=== PATIENT | male | born 1950 | race Caucasian/White ===

== ENCOUNTER → 2024-05-22 11:04 | Outpatient (REF) | payer OTHER, SELFPAY | LOC: RCS 11:04 | PROVIDERS: ATTENDING PHYSICIAN Nuclear Medicine Nuclear Cardiology; FAMILY PHYSICIAN Family Medicine | DX: I34.0 Nonrheumatic mitral (valve) insufficiency (principal); Z95.3 Presence of xenogenic heart valve | CPT/HCPCS: 93306 ==

== ENCOUNTER 2024-05-26 18:24 | Inpatient (IN) | payer OTHER, SELFPAY ==
[2024-05-26] VITALS (14 sets, daily range): BP systolic 152–221; BP diastolic 69–188; BMI 21.4
[2024-05-26 12:52] LABS: % Basophils 0.4 % (0-2); % Eosinophils 0.8 % (0-6); % Immature Granulocytes 0.4 % (0-0.5); % Lymphocytes 7.3 % (20.5-51.1); % Monocytes 4.1 % (1.7-9.3); Absolute Basophils 0.1 10^3/uL (0-0.2); Absolute Eosinophils 0.1 10^3/uL (0-0.7); Absolute Immature Granulocytes 0.1 10^3/uL (0-0.05); Absolute Lymphocytes 1.1 10^3/uL (1.2-3.4); Absolute Monocytes 0.6 10^3/uL (0.1-0.6); Absolute Neutrophils 12.7 10^3/uL (1.4-6.5); Hemoglobin 13.6 g/dL (13.0-18.0); Mean Corp Hgb Conc. 32.4 g/dL (33.0-37.0); Mean Corpuscular Hgb 27.7 pg (27.0-31.0); Mean Corpuscular Volume 85.5 fL (80.0-94.0); Mean Platelet Volume 9.2 fL (7.4-10.4); Nucleated Red Blood Cells % 0 % (-); Platelet Count 197 10^3/uL (130-400); Red Blood Cell Count 4.91 10^6/uL (4.70-6.10); White Blood Cell Count 14.6 10^3/uL (4.8-10.8)
[2024-05-26 13:15] LABS: ALT (SGPT) 18 U/L (0-50); AST (SGOT) 32 U/L (17-59); Albumin 4.5 g/dl (3.5-5.0); Alkaline Phosphatase 163 U/L (38-126); Blood Urea Nitrogen 27 mg/dl (9-20); Calcium 9.6 mg/dl (8.4-10.2); Carbon Dioxide 27 mmol/L (22-30); Chloride 102 mmol/L (98-107); Glucose 140 mg/dl (70-99); Potassium 3.8 mmol/L (3.5-5.1); Sodium 140 mmol/L (135-145); Total Bilirubin 1.9 mg/dl (0.2-1.3); Total Protein 8.9 g/dl (6.3-8.2); Troponin I < 0.012 ng/ml; eGFR 44.38
[2024-05-26 13:38] LABS: Urine Albumin 1+ (Neg - Trace); Urine Bilirubin Negative (Negative); Urine Character Clear (Clear); Urine Color Yellow; Urine Glucose 3+ (Negative); Urine Ketone Negative (Negative); Urine Leukocyte Negative (Negative); Urine Nitrite Negative (Negative); Urine Occult Blood 2+ (Negative); Urine Urobilinogen Negative (Neg - 1+)
[2024-05-26 14:16] LABS: Urine Squamous Cell 0-2 /LPF (Few)
[2024-05-26 14:18] LABS: Urine Red Blood Cell 26-30 /HPF (0-2)
[2024-05-26] MEDS: ZOFRAN 4 MG IV (14:18)
[2024-05-26] MEDS: DILAUDID 1 MG IV (14:19)
--- NOTE | 2024-05-26 17:25 | ED.GENMED ---
History of Present Illness
General
Chief Complaint: Back Pain
Source: patient, records and significant other
Exam Limitations: none
Time Seen by Provider: 05/26/24 13:19
Nursing documentation reviewed up to this point in time: agreed with
History of Present Illness
History of Present Illness:
Patient is a 74-year-old male who presents to the emergency department complaining of diffuse pain across the abdomen and back with feeling bloated since 3 AM. Patient denies fever but admits to chills. Patient denies chest pain but has mild
shortness of breath. Patient denies coughing, nasal congestion, sore throat. Patient denies any symptoms. Patient is nauseous with dry heaves. Patient had loose stools without melena, hematochezia. Patient has known gallbladder disease but
because he had [facility] for a large ventral hernia decision was to wait and see.
Past History
Past History
ED Past Medical History: Arrthythmia (Atrial fib), CHF, HTN, Hypercholesterolemia and Valvular disease
ED Past Surgical History: Cardiac and Other (Ventral hernia repair X3)
Social History
Tobacco: Non-smoker
Alcohol: None
Personal:
Living: with family
Review of Systems
Review of Systems
All Other Systems: ROS reviewed and negative except as documented in HPI and ROS
Constitutional: Reports fatigue and chills; Denies fever
EENT: Reports no symptoms
Respiratory: Reports trouble breathing; Denies cough
Cardiac: Reports no symptoms
ABD/GI: Reports abdominal pain, nausea, vomiting, anorexia and other (Soft stools that are not diarrhea); Denies bloody stools or black stools
: Reports no symptoms
Musculoskeletal: Reports back pain
Skin: Reports no symptoms
Neurological: Reports no symptoms
Hematologic/Lymphatic: Reports no symptoms
Phy Exam
Physical Exam
Physical Exam:
Physical Exam
General: moderate distress, alert and appropriate, well nourished, dry mucous membranes
HENT: Normocephalic, supple with no lymphadenopathy, no thyromegaly
Eyes: Clear sclera, conjuctiva without injection
Heart: Regular rhythm and rate. No S3, S4. Grade 2/6 holosystolic murmur. No NVD
Lungs: No respiratory distress, no stridor, lung sounds clear and equal bilaterally, chest wall symmetrical and nontender
Abdomen: Soft, moderate midepigastric and right upper quadrant tenderness with guarding but no rebound, hepatic edge is felt 1 to 2 cm below the costal margin, no CVA tenderness, BS good
Neuro: Alert and oriented x 3, CN II - XII intact, no motor focality, no cerebellar dysfunction
Skin: no rash
Psychiatric: well kept. interactive and cooperative
Extremities: No edema, cyanosis, tenderness
Course
Orders/Labs/Results
Orders:
Orders
05/26/24 12:21
EKG [Electrocardiogram (*1)] Urgent
Reason for Study: Chest Pain
EKG- Treatment ONCE
05/26/24 12:45
CMP [Comprehensive Metabolic Panel] Urgent
Complete Blood Count/With Diff Urgent
Troponin I Urgent
05/26/24 13:22
Urinalysis Reflex To Culture Urgent
Date Specimen was Collected: 05/26/24
Time Specimen was Collected: 13:19
Urine Microscopic Reflex Cult Urgent
05/26/24 14:04
HYDROmorphone [Dilaudid] 1 mg IV NOW STA
Ondansetron Injectable [Zofran] 4 mg IV NOW STA
US Abdomen Complete/Upper Urgent
Comment:
Reason For Exam: enlarged liver tender
05/26/24 17:25
Diphenhydramine [Benadryl] 12.5 mg IV NOW STA
Morphine Sulfate 2 mg IV NOW STA
Prochlorperazine [Compazine] 5 mg IV NOW STA
05/26/24 17:29
0.9% Sodium Chloride 1000 ml [Nss] 1,000 ml IV BOLUS
Abnormal Lab Results
05/26/24 05/26/24
12:45 13:22
WBC 14.6 H 10^3/uL
(4.8-10.8)
MCHC 32.4 L g/dL
(33.0-37.0)
RDW 18.0 H %
(11.5-14.5)
Abs Immat Gran (auto) 0.1 H 10^3/uL
(0-0.05)
Absolute Neuts (auto) 12.7 H 10^3/uL
(1.4-6.5)
Absolute Lymphs (auto) 1.1 L 10^3/uL
(1.2-3.4)
Neutrophils % 87.0 H %
(42.2-75.2)
Lymphocytes % 7.3 L %
(20.5-51.1)
BUN 27 H mg/dl
(9-20)
Creatinine 1.6 H mg/dL
(0.7-1.3)
Glucose 140 H mg/dl
(70-99)
Total Bilirubin 1.9 H mg/dl
(0.2-1.3)
Alkaline Phosphatase 163 H U/L
(38-126)
Total Protein 8.9 H g/dl
(6.3-8.2)
Ur Occult Blood Reflex 2+ A
(Negative)
Urine RBC 26-30 A /HPF
(0-2)
Urine Glucose 3+ A
(Negative)
Urine Albumin (Reflex) 1+ A
(Neg - Trace)
05/26/24 12:45
05/26/24 12:45
Vital Signs
Initial and Last Documented VS:
Initial Vital Signs
Temp Pulse Resp BP Pulse Ox
98.2 F 73 18 177/94 100
05/26/24 12:22 05/26/24 12:22 05/26/24 12:22 05/26/24 12:22 05/26/24 12:22
Last Documented Vital Signs
Temp Pulse Resp BP Pulse Ox
98.2 F 70 24 152/74 96
05/26/24 12:22 05/26/24 17:30 05/26/24 17:30 05/26/24 17:30 05/26/24 17:30
*Radiology
Radiology exam reviewed: radiology read reviewed (Prominent gallbladder with stones at least 1 in the vicinity of the neck with mild thickening of the gallbladder wall. Patient had positive Durán's sign and could represent acute cholecystitis)
*Pulse Oximetry
Patient hypoxic: no
*EKG
Interpreted by ED Provider?: Yes
EKG Intrepretation Date: 05/26/24
EKG Intrepretation Time: 17:31
Interpretation: normal
Comparison EKG: changes noted
Heart Rate: 80
Rhythm: sinus
[place]: normal axis
Interval: normal FL interval and long QT
QRS Pattern: normal QRS
Ischemia: no ischemia
*Data Analytics Developer Interpretation
Rate: normal
Interpretation: normal
Heart Rate: 80
Rhythm: sinus
*Critical Care Note
Total Time (30-74mins, 75-104mins- exclusive of procedures): Not Applicable
Update Note
Update Note:
Will admit the patient.
ED Attending Note
-
Portions of this chart may have been created with voice recognition software.� Occasional wrong word or��sound alike� substitutions may have occurred due to the inherent limitations of voice recognition software.
Discharge Plan
Departure
Patient Disposition: Admit
Date of Disposition: 05/26/24
Time of Disposition: 17:37
Admit to: Med/Surg
Admit to doctor: Hospitalist
Presentation/result/management discussed w/ accepting MD/DO: General surgery
Patient with high blood pressure during this ER visit?: Yes
Condition: Fair
Covid-19: Not Applicable
Discharge Problem:
Acute cholecystitis due to biliary calculus
Prescriptions:
No Action
allopurinol 100 MG tablet
200 mg PO QPM
finasteride 5 MG tablet
5 mg PO HS
atorvastatin 40 MG tablet
40 mg PO HS Qty: 1 0RF
pantoprazole 40 MG tablet,delayed release (DR/EC)
40 mg PO DAILY
Farxiga 10 MG tablet
10 mg PO DAILY
magnesium oxide 400 MG tablet
400 mg PO DAILY
lorazepam 0.5 MG tablet
0.5 mg PO Q6H PRN (Reason: anxiety/sleep)
Patient Comments:
10/12/2023: last filled 01/03/23, 60 tabs for 30 days from [facility]
metoprolol succinate 50 MG tablet extended release 24 hr
50 mg PO QPM Qty: 30 0RF
Eliquis 2.5 MG tablet
2.5 mg PO BID Qty: 60 0RF
sildenafil 100 mg tablet
100 mg PO DAILY PRN (Reason: ed)
Hold Instructions: given your heart issues, would discuss the safety of this medication with your junior accountant bookkeeper--hold for now
Align 4 mg Capsule
4 mg PO DAILY
potassium chloride 10 mEq tablet extended release
10 meq PO DAILY
fluoxetine 20 mg capsule
20 mg PO DAILY
amiodarone [Pacerone] 200 mg tablet
200 mg PO QPM
levofloxacin 500 mg tablet
500 mg PO DAILY 5 Days Qty: 7 0RF
metronidazole 500 mg tablet
500 mg PO Q8H 7 Days Qty: 21 0RF
furosemide [Lasix] 20 mg tablet
20 mg PO DAILY Qty: 30 0RF
Referrals:
Skip Patel MD [Family Provider] -
Interventions
Interventions:
*Risk Screen - Suicide Last Done: 05/26/24 13:20
*General Assessment Last Done: 05/26/24 13:20
*Neglect/Abuse Screening Last Done: 05/26/24 13:20
ED- Fall Risk Assessment Last Done: 05/26/24 13:20
*ED COVID-19 Vaccine History Last Done: 05/26/24 13:20
ED-Musculoskeletal Assessment Last Done: 05/26/24 13:19
Discharge Date and Time
Print Language: KINYARWANDA
[2024-05-26] MEDS: MORPHINE SULFATE 2 MG IV (17:28)
[2024-05-26] MEDS: BENADRYL 12.5 MG IV (17:29)
[2024-05-26] MEDS: COMPAZINE 5 MG IV (17:29)
[2024-05-26] MEDS: NSS 1000 IV (17:33)
--- NOTE | 2024-05-26 17:37 | HPS.HSE ---
Addendum entered and electronically signed by Luke Boogie MD 05/26/24 21:05:
I saw and examined the patient.
The LENS HARDENER or PA's note was reviewed and I agree with the note.
Comment:
74 male A-fib Eliquis history HFrEF recovered EF hypertension hyperlipidemia CKD 3 mitral valve bioprosthetic ventral hernia repair presents with new onset abdomen pain diffuse that woke him up from sleep last night associated with nausea dry heaves
and chills. Abdomen ultrasound consistent with acute cholecystitis. Afebrile mild leukocytosis noted in labs. Patient developed hypoxic insufficiency/failure requiring 2 L following pain medications and a liter bolus given in ED. Chest x-ray
suggestive of heart failure and possible right basilar pneumonia.
Physical Exam
General: No pallor, cyanosis, or jaundice.
HEENT: Throat clear. PERRLA Normocephalic atraumatic hard of hearing
NECK: Supple. No JVD Carotid Bruits
RESPIRATORY: Right basilar crackles
CVS: S1, S2 normal. RRR. No murmur, rub or gallop.
ABDOMEN: Soft, tender distended. BS+/normal.
EXTREMITIES: No peripheral cyanosis or edema.
HOUSEHOLD COOK: AOx3.
#Acute cholecystitis
#Possible heart failure exacerbation acute on chronic HFpEF
#History HFrEF recovered EF
#Possible pneumonia
#Sepsis (leukocytosis tachypnea)
#Mild QT prolongation
Telemetry admit
Elevated BNP noted though appears to improve from prior values
N.p.o. except for meds sips of clears
Hold further IV fluid or Lasix at this time
Surgery cardio infectious disease eval
Continue empiric antibiotics Zosyn
Hydralazine as needed hypertension
Pain control
Antiemetics as needed
Daily weights I/O
Check lactic acid
Hold Eliquis for possible procedure
Original Note:
Family Physician
-
Family Physician: Skip Patel
Chief Complaint
-
abdominal pain associated with bloating, n
History of Present Illness
74-year-old male with PMH for A-fib, congestive heart failure, hypertension, hyperlipidemia, valvular disease presented to us with complaining of diffuse pain across the abdomen and back with feeling bloated since 3 AM. Stated dry heaves. Denied
vomiting, diarrhea or constipation. patient denies fever but admits to chills. Patient denies chest pain short of breath. patient denies coughing, nasal congestion, sore throat. Patient denied dysuria hematuria.
Ultrasound with acute cholecystitis. Admitting for further management
Medical History
Past Medical History
Past Medical History: Reports Other
Additional Past Medical History:
Abdominal hernia without obstruction or gangrene
Palpitation
Gout
Pulmonary hypertension
Depression
Anemia
Hyperlipidemia
BPH
Erectile dysfunction
Heart failure
Mitral valve insufficiency
Obstructive sleep apnea
Hypertension
Atrial fibrillation
Chronic kidney disease
Calculus of gallbladder
Past Surgical History: Reports Other
Additional Past Surgical History:
Paraesophageal hernia repair
Ventral hernia repair
Inguinal hernia repair x 2
Status post ex lap, lysis of adhesion removal old hernia mesh
Repair recurrent incisional hernia with mesh
Cardioversion
Social History
Tobacco: Non-smoker
Alcohol: None
Drug: None
Personal:
Living: With Family
Employment: Retired
Family History
Family History: Not pertinent
Allergies / Home Medications
Allergies reflects when Allergies were last updated in [facility].
Home Medications with original date entered in [facility]
Allergy/Medication List:
Allergies
Allergy/AdvReac Type Severity Reaction Status Date / Time
No Known Allergies Allergy Verified 05/26/24 13:21
Home Medications
allopurinol 100 mg tablet 200 mg PO QPM Gout 04/19/19
finasteride 5 mg tablet 5 mg PO HS Urinary issue 04/19/19
atorvastatin 40 mg tablet 40 mg PO HS High cholesterol #1 tab 10/12/20
dapagliflozin propanediol 10 mg tablet (Farxiga) 10 mg PO DAILY Diabetes/Cardiovascular health 05/19/22
lorazepam 0.5 mg tablet 0.5 mg PO Q6HPRN PRN anxiety/sleep 05/19/22
magnesium oxide 400 mg PO DAILY Electrolyte Repletion 05/19/22
pantoprazole 40 mg tablet,delayed release 40 mg PO DAILY Gastrointestinal issue 05/19/22
apixaban 2.5 mg tablet (Eliquis) 2.5 mg PO BID #60 tabs 05/24/22
Bifidobacterium infantis 4 mg capsule (Align) 4 mg PO DAILY Gastrointestinal issue 12/30/22
sildenafil 100 mg tablet 100 mg PO DAILYPRN PRN ed 12/30/22
fluoxetine 20 mg capsule 20 mg PO DAILY 10/12/23
potassium chloride 10 mEq tablet,extended release 10 meq PO DAILY@1130 10/12/23
ferrous sulfate 325 mg (65 mg iron) tablet 325 mg PO DAILY@1320 05/26/24
furosemide 20 mg tablet (Lasix) 20 mg PO DAILY@1500 05/26/24
metoprolol succinate 50 mg tablet,extended release 24 hr 50 mg PO HS 05/26/24
Review of Systems
-
Constitutional: Reports No Symptoms
EENT: Reports No Symptoms
Respiratory: Reports No Symptoms
Cardiac: Reports No Symptoms
Abdomen/GI: Reports Abdominal Pain and Nausea
: Reports No Symptoms
Musculoskeletal: Reports No Symptoms
Skin: Reports No Symptoms
Neurological: Reports No Symptoms
Endocrine: Reports No Symptoms
Hematologic/Lymphatic: Reports No Symptoms
Psych: Reports No Symptoms
Physical Exam
Vital Signs
Vital Signs
Temp Pulse Resp BP Pulse Ox
98.2 F 70 24 152/74 96
05/26/24 12:22 05/26/24 17:30 05/26/24 17:30 05/26/24 17:30 05/26/24 17:30
Physical Exam
General: Well Developed, Well Nourished and No Apparent Distress
HEENT: NormoCephalic, Moist mucous membranes and Atraumatic
Respiratory: Clear
Cardiac: S1/S2 and Regular Rhythm; No Murmur or Rub
GI: Soft, Non Tender, Normal Bowel Sounds and Distended; No Organomegaly
Rectal: Deferred by Provider
Musculoskeletal: No Clubbing, No Cyanosis and No Edema
Skin: No Rash
Neuro: AO x 3 and Nonfocal/grossly intact
Psych: Calm
Laboratory Results
-
05/26/24 12:45
05/26/24 12:45
Laboratory Results
Total Bilirubin 1.9 mg/dl (0.2-1.3) H 05/26/24 12:45
AST 32 U/L (17-59) 05/26/24 12:45
ALT 18 U/L (0-50) 05/26/24 12:45
Alkaline Phosphatase 163 U/L (38-126) H 05/26/24 12:45
Troponin I < 0.012 ng/ml 05/26/24 12:45
Data Reviewed
-
Diagnostic Radiology: Report Reviewed by me
Ultrasound: Report Reviewed by me
Lab Data: Labs Reviewed by me
Impression/Plan
-
#abdominal pain associated with n/bloating likely acute cholecystitis
-wbc 14.6,bili 1.9
-abdominal US with Prominent size gallbladder with stones including at least one stone in the vicinity of the gallbladder neck. Gallbladder wall mildly thickened at 0.4 cm. Positive sonographic Durán's sign. No findings to suggest biliary tract
dilatation. OVERALL FINDINGS COULD REPRESENT ACUTE CHOLECYSTITIS.Liver within the limits of normal in size. 0.8 cm somewhat echogenic right lobe hepatic lesion. Most likely differential diagnostic possibility would be a benign hemangioma.Pancreas,
abdominal aorta and IVC significantly obscured, most likely by overlying bowel gas.Bilateral renal cysts including largest right renal cyst measuring 5.8 cm mildly complex.
-NPO xpt meds and sips of clears
-iv Zosyn continued
-normal saline 50cc/hr
-Surgery consulted
#CKD stage 3b
-cr 1.6
-ctm
#Chronic HFrEF
-not in acute exacerbation
#Hx Mitral Valve Endocarditis s/p MVR
-Echo May 2024: Normal left ventricular size and systolic function. LV ejection fraction is 45-
-hold Lasix
-continue Farxiga
-Monitor Is&Os and Daily Weights
-obtain BNP, chest x ray
# Iron deficiency anemia
-Ferrous sulfate continued
# BPH
-Finasteride continued
#Paroxysmal Atrial Fibrillation
-EKG with accelerated junctional rhythm, prolonged QT
-Hold Eliquis for possible surgical intervention
-Continue metoprolol
-cardiology consulted
# GERD
-PPI continued
#Essential Hypertension
-Continue metoprolol with hold parameter
#Anxiety/Depression
-Continue fluoxetine, Ativan continued
# Gout
-Allopurinol continued
# Hyperlipidemia
-Statin continued
DVT proph: SCDs
Code Status: Full Code
[2024-05-26] MEDS: ZOSYN 50 IV (18:21)
[2024-05-26 18:47] LABS: NT-proBNP 7040 pg/ml
[2024-05-26 21:36] LABS: Lactic Acid 1.1 mmol/L (0.7-2.0)
[2024-05-26] MEDS: LIPITOR 40 MG PO (21:54)
[2024-05-26] MEDS: TOPROL XL 50 MG PO (21:54)
[2024-05-26] MEDS: ZYLOPRIM 200 MG PO (21:54)
[2024-05-26] MEDS: PROSCAR 5 MG PO (21:54)
[2024-05-26] MEDS: APRESOLINE 5 MG IV (21:55)
--- NOTE | 2024-05-26 22:00 | PTCARENOTE ---
Pt arrived to unit from ED and was a stand and pivot assist x1 from stretcher to bed. Pt's BP 187/96, HR 81. Pt reports 3/10 pain throughout abdomen. Pt is AAOx3, oriented to room and call ivey within reach. Pt and pt's Chan updated on
plan of care at bedside. Pt brought his own CPAP from home; [facility] [address] notified, order placed for CPAP to use HS and PRN.
[2024-05-27] VITALS (7 sets, daily range): BP systolic 115–152; BP diastolic 55–77; BMI 21.3
[2024-05-27] MEDS: ZOSYN 50 IV ×2 (00:23→05:28)
--- NOTE | 2024-05-27 06:32 | W.PN.HOSP.TC ---
Today's Communication/Plan
-
abx as per ID
clear liquid diet, npo after midnight for cholecystotomy tube w/ IR in AM
pain control
lasix once
wean O2 supplementation
orthostatic vitals
fall precautions
Assessment / Plan
Assessment / Plan
Physical Exam
General: No pallor, cyanosis, or jaundice.
HEENT: Throat clear. PERRLA Normocephalic atraumatic hard of hearing
NECK: Supple. No JVD Carotid Bruits
RESPIRATORY: Bibasilar crackles
CVS: S1, S2 normal. RRR. No murmur, rub or gallop.
ABDOMEN: Soft, tender distended. BS+/normal.
EXTREMITIES: No peripheral cyanosis or edema.
SECRETARY SPECIALIST: AOx3.
74 male A-fib Eliquis history HFrEF recovered EF hypertension hyperlipidemia CKD 3 mitral valve bioprosthetic ventral hernia repair presents with new onset abdomen pain diffuse that woke him up from sleep last night associated with nausea dry heaves
and chills. Abdomen ultrasound consistent with acute cholecystitis. Afebrile mild leukocytosis noted in labs. Patient developed hypoxic insufficiency/failure requiring 2 L following pain medications and a liter bolus given in ED. Chest x-ray
suggestive of heart failure and possible right basilar pneumonia.
#abdominal pain associated with n/bloating likely acute cholecystitis
#Possible sepsis WBC elevation Tachypnea, BP stable, no lactic acidosis
-abdominal US suggestive acute cholecystitis
-ID eval appreciated zosyn narrowed to ceftriaxone and flagyll
-Surgery consult appreciated ok for clears, IR consulted for cholecystostomy tube in AM Mon 05/28.
#CKD stage 3
-cr appears stable 1.5-1.6
# History HFrEF recovered EF
#Hx Mitral Valve Endocarditis s/p MVR
#Acute hypoxic insufficiency/failure possibly due to acute on chronic HFpEF (resolved)
Echo 05/22/24 noted preserved EF 45 to 50% bioprosthetic mitral valve, improved EF from September 2023 35%
-continue Farxiga
-Monitor Is&Os and Daily Weights
-BNP elevated but has had similar high values in past if not higher
-chest x ray suggestive heart failure small b/l pleural effusions possible pna (on abx as above)
-weaned off oxygen supplementation after once lasix 20 mg IV 05/27
# Iron deficiency anemia
-Ferrous sulfate continued
# BPH
-Finasteride continued
#Paroxysmal Atrial Fibrillation
-Hold Eliquis for possible surgical intervention
-Continue metoprolol
-cardiology consult appreciated
# GERD
-PPI continued
#Essential Hypertension
-Continue metoprolol with hold parameter
hydralazine prn
#Anxiety/Depression
-Continue fluoxetine, Ativan continued
# Gout
-Allopurinol continued
# Hyperlipidemia
-Statin continued
#Dizziness/Vertigo when standing
monitor orthostatic vitals
fall precautions
PT/OT eval
DVT proph: SCDs
Code Status: Full Code
I spent a total of 58 minutes with the patient or on the floor. More than 50% of this time involved counseling and coordination of care.
Anticipated Discharge: > 48 hours
Subjective/Interval History
-
Date of Service: May 27, 2024
No acute distress reports improvement in overall symptoms remains oxygen dependent 2L (baseline room air). Patient seen weaned off following once Lasix 20 mg IV. Reports some dizziness/vertigo when standing up
Objective Data
-
Labs:
Laboratory Results
05/27/24
06:29
WBC Pending
Hgb Pending
Hct Pending
Plt Count Pending
Sodium Pending
Potassium Pending
Chloride Pending
Carbon Dioxide Pending
BUN Pending
Creatinine Pending
Glucose Pending
Calcium Pending
Vital Signs:
Vital Signs
Temp Pulse Resp BP Pulse Ox
99.3 F 71 16 152/77 98
05/27/24 02:49 05/27/24 02:49 05/27/24 02:49 05/27/24 02:49 05/27/24 02:49
I&O
05/25/24 05/26/24 05/27/24
06:59 06:59 06:59
Intake Total 290 / 290
Output Total 425 / 425
Balance -135 / -135
[2024-05-27 06:57] LABS: Hematocrit 41.6 % (39.0-52.0); Hemoglobin 13.2 g/dL (13.0-18.0); Mean Corp Hgb Conc. 31.7 g/dL (33.0-37.0); Mean Corpuscular Hgb 27.7 pg (27.0-31.0); Mean Corpuscular Volume 87.4 fL (80.0-94.0); Mean Platelet Volume 9.7 fL (7.4-10.4); Platelet Count 158 10^3/uL (130-400); Red Blood Cell Count 4.76 10^6/uL (4.70-6.10); Red Cell Dist. Width 17.5 % (11.5-14.5); White Blood Cell Count 18.5 10^3/uL (4.8-10.8)
[2024-05-27 07:21] LABS: Blood Urea Nitrogen 27 mg/dl (9-20); Calcium 8.7 mg/dl (8.4-10.2); Carbon Dioxide 21 mmol/L (22-30); Chloride 107 mmol/L (98-107); Estimated Creatinine Clearance 39 ml/min; Glucose 110 mg/dl (70-99); Potassium 3.7 mmol/L (3.5-5.1); Sodium 138 mmol/L (135-145); eGFR 47.95
[2024-05-27] MEDS: PROTONIX 40 MG PO (08:23)
[2024-05-27] MEDS: PROZAC 20 MG PO (08:23)
[2024-05-27] MEDS: FARXIGA 10 MG PO (08:23)
[2024-05-27] MEDS: MAGNESIUM OXIDE 500 MG PO (08:23)
[2024-05-27 08:55] LABS: ALT (SGPT) 24 U/L (0-50); AST (SGOT) 45 U/L (17-59); Albumin 3.5 g/dl (3.5-5.0); Alkaline Phosphatase 105 U/L (38-126); Direct Bilirubin 0.6 mg/dl (0.0-0.4); Total Protein 7.1 g/dl (6.3-8.2)
[2024-05-27] MEDS: LASIX 20 MG IV (09:17)
--- NOTE | 2024-05-27 11:26 | CON.GS ---
Addendum entered and electronically signed by Dav Wilson MD 05/27/24 13:19:
I saw and examined the patient.
The TRANSPORT RN's note was reviewed and I agree with the note.
Comment:
Seen in am with TRANSPORT RN.
History, vitals, labs, imaging reviewed. Patient seen and examined.
74 yo M known to service with acute cholecystitis and multiple medical issues who is not a great surgical candidate. On exam has Durán's sign. Agree with IV antibiotics and clears for now. IR consult for cholecystostomy tube in am.
Thanks.
Original Note:
Medical History
-
Chief Complaint: RUQ pain
History of Present Illness:
Mr. Ramirez is a 74 yo male with a history of CHF, AFIB (on Eliquis LD 05/26 am), MAZE, bioprosthetic MVR, HTN, CKD, and abdominal wall reconstruction for a large complex incisional hernia with small bowel obstruction in [address] Underwood with a
history of biliary colic in the past and admission in September for cholangitis with suspected passage of gallstone at that time. He was advised to follow up for outpatient cholecystectomy once medically optimized but has not yet done so. He presents
this admission with RUQ pain and tenderness with nausea and vomiting which awakened him from sleep yesterday morning. He was hypoxic in the ED and is currently on oxygen. He denies fevers or chills.
Past Medical History
Past Medical History: Arrhythmias (afib), HTN, Hypercholesterolemia, Renal Failure (ckd-stage 3) and Other (BHANU-cpap)
Past Surgical History: Cardiac (MVR (bioprosthetic), MAZE, left atrial appendage ligation) and Other (Open paraesophageal hernia repair, inguinal herniorrhaphy, exploratory laparotomy lysis of adhesions, repair incisional hernia with mesh, bilateral
TAR with Yasmine)
Social History
Tobacco: Non-Smoker
Allergies / Home Medications
Allergy/AdvReac Type Severity Reaction Status Date / Time
No Known Allergies Allergy Verified 05/26/24 13:21
�Medication �Instructions �Recorded �Confirmed �Type
allopurinol 100 mg tablet 200 mg PO QPM Gout 04/19/19 05/26/24 History
finasteride 5 mg tablet 5 mg PO HS Urinary issue 04/19/19 05/26/24 History
atorvastatin 40 mg tablet 40 mg PO HS High cholesterol #1 tab 10/12/20 05/26/24 Rx
dapagliflozin propanediol 10 mg 10 mg PO DAILY 05/19/22 05/26/24 History
tablet (Farxiga) Diabetes/Cardiovascular health
lorazepam 0.5 mg tablet 0.5 mg PO Q6HPRN PRN anxiety/sleep 05/19/22 05/26/24 History
magnesium oxide 400 mg PO DAILY Electrolyte 05/19/22 05/26/24 History
Repletion
pantoprazole 40 mg tablet,delayed 40 mg PO DAILY Gastrointestinal 05/19/22 05/26/24 History
release issue
apixaban 2.5 mg tablet (Eliquis) 2.5 mg PO BID #60 tabs 05/24/22 05/26/24 Rx
Bifidobacterium infantis 4 mg 4 mg PO DAILY Gastrointestinal 12/30/22 05/26/24 History
capsule (Align) issue
sildenafil 100 mg tablet 100 mg PO DAILYPRN PRN ed 12/30/22 05/26/24 History
fluoxetine 20 mg capsule 20 mg PO DAILY Depression 10/12/23 05/26/24 History
potassium chloride 10 mEq 10 meq PO DAILY@1130 Electrolyte 10/12/23 05/26/24 History
tablet,extended release Repletion
ferrous sulfate 325 mg (65 mg 325 mg PO DAILY@1320 Electrolyte 05/26/24 05/26/24 History
iron) tablet Repletion
furosemide 20 mg tablet (Lasix) 20 mg PO DAILY@1500 Fluid 05/26/24 05/26/24 History
Retention/Swelling
metoprolol succinate 50 mg 50 mg PO HS Blood Pressure 05/26/24 05/26/24 History
tablet,extended release 24 hr
Review of Systems
-
History Source: Patient
All other systems: Negative unless noted
A 10 point review of systems was completed, and was negative except as per HPI.
Physical Exam
Vital Signs
Temp Pulse Resp BP Pulse Ox
98.3 F 69 16 122/55 97
05/27/24 07:07 05/27/24 07:07 05/27/24 07:07 05/27/24 09:17 05/27/24 07:07
05/26/24 05/27/24 05/28/24
06:59 06:59 06:59
Actual Weight 65.459 kg
Body Mass Index (BMI) 21.3
Lab Results
05/27/24 06:29
05/27/24 06:29
WBC 18.5 10^3/uL (4.8-10.8) H 05/27/24 06:29
Hgb 13.2 g/dL (13.0-18.0) 05/27/24 06:29
Hct 41.6 % (39.0-52.0) 05/27/24 06:29
Plt Count 158 10^3/uL (130-400) 05/27/24 06:29
Abs Immat Gran (auto) 0.1 10^3/uL (0-0.05) H 05/26/24 12:45
Neutrophils % 87.0 % (42.2-75.2) H 05/26/24 12:45
Physical Exam
General: Well Developed and Well Nourished
HEENT: Moist Mucous Membranes
Respiratory: Non Labored Respirations
GI: Soft, Tender (RUQ) and Distended (mild)
Skin: Warm and Dry
Neuro: Awake, Alert and AO x 3
Psych: Calm
Assessment / Plan
-
Assessment:
74 yo male with a history of CHF, AFIB (on Eliquis LD 05/26 am), MAZE, bioprosthetic MVR, HTN, CKD stage3, and abdominal wall reconstruction for a large complex incisional hernia with small bowel obstruction in [address] Underwood with a history of
biliary colic in the past and admission in September for cholangitis/sepsis/bacteremia with suspected passage of gallstone at that time with recommendation for interval cholecystectomy after medical recovery. Now presenting with RUQ pain/n/v.
US demonstrates cholelithiasis with evidence of cholecystitis noted; exam with significant RUQ tenderness consistent with this finding. +Leukocytosis with rise overnight despite antibiotics. Bilirubin elevated but with only mild rise in direct
bilirubin. AFVSS but requiring O2 for hypoxia. Medicine managing for ??heart failure exacerbation and possible PNA. LD of Bud was yesterday, he believes in the morning but is not certain.
Plan:
--Given rise in WBC overnight despite abx, hypoxia and multiple co-morbidities he is high risk for clinical deterioration and higher risk for emergent surgery. Will plan placement of cholecystostomy tube with IR tentatively in AM
--Continue IV abx
--Trend labs
--Hold Eliquis for intervention
--Clears as tolerated then NPO after MN
--Medical management as per primary team
--- NOTE | 2024-05-27 11:44 | CON.ID ---
Consultation
-
Date/Time Consultation Requested: May 26, 20242112
Date/Time Consultation Performed: May 27, 2024 1145
Requesting Provider: Dr. Luke Boogie
Performing Provider: Dr. Padmini Myrick
Reason for Consultation: acute cholecystitis versus pneumonia
Chief Complaint / Past History
Chief Complaint
Upper abdominal pain
History of Present Illness
History obtained from patient, from his at bedside, and from review medical records. 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
mitral valve replacement 2021, who presented to the hospital last night due to severe abdominal pain. Of note patient with history of recurrent biliary colic/acute cholecystitis with Klebsiella bacteremia, cholangitis in September 2023. He was
recommended to follow-up with surgery for elective cholecystectomy. However patient never did follow-up. He developed upper abdominal and right upper quadrant pain that was very severe yesterday. No fever. Positive chills. Positive nausea. No
diarrhea. White count was 14.6. Abdominal ultrasound shows gallstones at least 1 gallbladder neck, with thickened gallbladder wall concerning for acute cholecystitis. He received narcotic last night with subsequent hypoxia. Chest x-ray shows
possible right lower lobe opacity. Today patient reports abdominal pain is not as severe as last night. No cough or shortness of breath. Tolerating liquid diet.
Past History
Additional Past Medical History:
Chronic HFrEF
Paroxysmal Atrial Fibrillation
Strep mutans MV endocarditis (2005)
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
s/p bio-Mitral Valve Replacement / MAZE procedure / Left Atrial Appendage Ligation (at [facility] 02/25/2022)
Klebsiella bacteremia (09/2023) from acute cholecystitis, passed gallstone
Essential Hypertension
Hyperlipidemia
CKD Stage III
Anxiety/Depression
Gout
BHANU on CPAP
Inguinal Hernia Repair
Paraesophageal Hernia Repair
Ventral Hernia Repair
Inguinal hernia repair
Small bowel obstruction status post exploratory lap.
Allergy History:
No Known Allergies Allergy (Verified 05/26/24 13:21)
Medications Reviewed: Yes
Current Antibiotics:
Zosyn
Social History
Tobacco: Non-Smoker
Alcohol: None
Personal: (to )
Family History
Family History: Not Pertinent
Review of Systems
Review of Systems
General: Change in Appetite
HEENT: Negative Sinus Problems or Headache
Cardiovascular: Negative Chest Pain or Edema
Respiratory: Negative Dyspnea or Cough
Gasteroenterology: Nausea and Other (no diarrhea)
Genital / Urological: Negative Dysuria or Flank Pain
Endocrine: Weakness
Neurological: Negative Headache or Dizziness
All systems: All other systems were reviewed and were negative
Vital Signs
Temp Pulse Resp BP Pulse Ox
98.1 F 71 16 116/55 97
05/27/24 11:36 05/27/24 11:36 05/27/24 11:36 05/27/24 11:36 05/27/24 11:36
Physical Exam
Physical Exam
Constitutional: No Acute Distress
Eyes: No Conjunctival Hemorrhage and Sclera Anicteric (mild icterus)
Cardiovascular: Regular Rate and S1/S2
Pulmonary: Clear
Gastrointestinal: Soft, Tender (RUQ) and Normal Bowel Sounds
Genito-Urinary: Negative CVA Tenderness
Extremities: Negative Edema
Neurological: AO x 3
Lab / Diagnostic Study Results
05/27/24 06:29
05/27/24 06:29
Abs Immat Gran (auto) 0.1 10^3/uL (0-0.05) H 05/26/24 12:45
Absolute Neuts (auto) 12.7 10^3/uL (1.4-6.5) H 05/26/24 12:45
Absolute Lymphs (auto) 1.1 10^3/uL (1.2-3.4) L 05/26/24 12:45
Absolute Monos (auto) 0.6 10^3/uL (0.1-0.6) 05/26/24 12:45
Absolute Basos (auto) 0.1 10^3/uL (0-0.2) 05/26/24 12:45
Immature Gran % 0.4 % (0-0.5) 05/26/24 12:45
Neutrophils % 87.0 % (42.2-75.2) H 05/26/24 12:45
Lymphocytes % 7.3 % (20.5-51.1) L 05/26/24 12:45
Monocytes % 4.1 % (1.7-9.3) 05/26/24 12:45
Eosinophils % 0.8 % (0-6) 05/26/24 12:45
Basophils % 0.4 % (0-2) 05/26/24 12:45
Lactic Acid 1.1 mmol/L (0.7-2.0) 05/26/24 21:19
Ur Squamous Epith Cells 0-2 /LPF (Few) 05/26/24 13:22
Microbiology Results
Micro:
05/26/24 21:19 Blood Culture - Pending
Blood/Venous
05/26/24 20:52 Blood Culture - Pending
Blood/Venous
05/26/24 CXR: Cardiomegaly with mildly increased pulmonary vascularity suggesting suggesting mild CHF. Small bilateral pleural effusions, right greater than left.
Superimposed right basilar opacity such as pneumonia cannot be entirely excluded.
05/26/24 ABD US: Prominent size gallbladder with stones including at least one stone in the vicinity of the gallbladder neck. Gallbladder wall mildly thickened at 0.4 cm. Positive sonographic Durán's sign. No findings to suggest biliary tract
dilatation. OVERALL FINDINGS COULD REPRESENT ACUTE CHOLECYSTITIS.
Assessment / Plan
# Recurrent biliary colic and acute cholecystitis
# Leukocytosis worse
- hx Klebsiella cholangitis 09/2023. Pt did not follow-up with Surgeon for elective cholecystectomy
- For perc jonel, per Surgeon.
- Follow blood cx.
- Narrow Zosyn to ceftriaxone, metronidazole.
- Trend wbc.
--- NOTE | 2024-05-27 11:53 | CON.CAR ---
Addendum entered and electronically signed by Peyman Hayden MD 05/27/24 12:03:
He can withhold Eliquis for any planned intervention. He has been off amiodarone since late january and has not had any recurrence of arrhythmias.
General surgery note is noted and it appears that a T-tube is planned. If open or laparoscopic cholecystectomy is required he can proceed to this as needed. His BNP is noted although has been markedly higher on almost every other check throughout
his history at [facility]. Given examination and overall low BNP compared to prior I suspect he is euvolemic.
Original Note:
Consultation
Consultation Request
Date/Time Consultation Requested: May 27, 2024
Date/Time Consultation Performed: May 27, 2024
Requesting Provider: Hospitalist
Performing Provider: Jackelyn
Reason for Consultation: Preoperative clearance
Medical History
-
Chief Complaint: Preoperative clearance
History of Present Illness:
Satinder is here with acute onset right upper quadrant pain and evidence for cholecystitis. Of note he had bacteremia and cholecystitis last September 2023. He also has a history of bacterial endocarditis status post mitral valve repair, maze and
left atrial appendage ligation. I saw him briefly postoperatively in 2022 in the setting of ongoing atypical atrial flutter and A-fib and he was treated with amiodarone at that time and eventual discontinuation of antiarrhythmic drug therapy. From
an arrhythmia standpoint has remained relatively stable. He tells me he has no active chest pain pressure, active arrhythmia symptoms, dyspnea or dyspnea exertion. His prominent system is right upper quadrant pain.
PCP:Dr. Patel
Candy Waffle Assembler: Dr. Barboza
EP: Dr. Hayden
Past medical history and testing:
Presented with abdominal pain
Sepsis secondary to presumed acute cholecystitis
Klebsiella pneumoniae bacteremia
Acute on chronic HFrEF
Cardiomyopathy, EF 35-40% by echo 05/2023
Accelerated junctional rhythm
h/o recurrent thoracenteses for B/L pleural effusions
s/p tissue MVR/MAZE/SHAYY ligation for severe MR with partial flail at [place] 02/25/22
h/o Bacteremia, Strep mutans, severe MR with partial flail by [facility] admission 02/04/22 until 02/17/22
h/o endocarditis in 2005 with resultant severe mitral regurgitation
Multifactorial anemia - GIB, CKD, iron deficiency
Paroxysmal atrial fibrillation
Chronic anticoagulation w/ Eliquis
HTN
Hyperlipidemia
CKD
Severe BHANU, on CPAP
Chronic back pain
Paraesophageal hernia repair 2001 with ELIESER 2019
BPH
Gout
[facility] 02/09/2022: EF is preserved� with severe eccentric anteriorly directed MR with posterior leaflet prolapse, partial flail. Small echodensity on posterior leaflet consistent with old vegetation.
Intra-op [facility] 02/25/22: [place] study, EF 45-50% at end of case
Echo 05/20/2022: EF 30-35%, global hypokinesis, anteroseptal and apical akinesis, EF 30-35%.� Bioprosthetic mitral valve with trace to mild perivalvular mitral regurgitation, mean gradient 6 mmHg 3, severe left atrial dilatation, aortic sclerosis
with mild aortic regurgitation, small atrial septal defect close to the mitral annulus, with [id number] shunt, pleural effusions
ECHO 12/30/22: EF 15 to 20%, severe diffuse global hypokinesis, reduced RV global systolic function, bioprosthetic mitral valve with mean gradient 3 mmHg, mild to moderate TR, PAP 35 to 40 mmHg, small ASD/PFO present, right and left pleural effusion
present
Echo 06/04/2023: EF 35-40%, abnormal septal motion, redundant chordal structures and ventricle, stage I diastolic dysfunction, small-moderate PFO w/ left to right shunting, bioprosthetic MVR with peak/mean gradients 18/5 mmHg, mild TR, estimated PAP
30-44 mmHg
Echo 10/13/2023: EF 35%, thickened bioprosthetic mitral valve with peak/mean gradients 12/4 mmHg, trace AR, moderate TR, estimated PAP 45-50 mmHg, no clear/obvious vegetation.
Past Medical History
Past Medical History: Arrhythmias
Past Surgical History: Cardiac
Social History
Tobacco: Non-Smoker
Alcohol: None
Drug: None
Personal: Partner
Living: With Family
Employment: Retired
Family History
Family History: Reviewed & Not Pertinent
Allergies / Home Medications
Allergy/AdvReac Type Severity Reaction Status Date / Time
No Known Allergies Allergy Verified 05/26/24 13:21
�Medication �Instructions �Recorded �Confirmed �Type
allopurinol 100 mg tablet 200 mg PO QPM Gout 04/19/19 05/26/24 History
finasteride 5 mg tablet 5 mg PO HS Urinary issue 04/19/19 05/26/24 History
atorvastatin 40 mg tablet 40 mg PO HS High cholesterol #1 tab 10/12/20 05/26/24 Rx
dapagliflozin propanediol 10 mg 10 mg PO DAILY 05/19/22 05/26/24 History
tablet (Farxiga) Diabetes/Cardiovascular health
lorazepam 0.5 mg tablet 0.5 mg PO Q6HPRN PRN anxiety/sleep 05/19/22 05/26/24 History
magnesium oxide 400 mg PO DAILY Electrolyte 05/19/22 05/26/24 History
Repletion
pantoprazole 40 mg tablet,delayed 40 mg PO DAILY Gastrointestinal 05/19/22 05/26/24 History
release issue
apixaban 2.5 mg tablet (Eliquis) 2.5 mg PO BID #60 tabs 05/24/22 05/26/24 Rx
Bifidobacterium infantis 4 mg 4 mg PO DAILY Gastrointestinal 12/30/22 05/26/24 History
capsule (Align) issue
sildenafil 100 mg tablet 100 mg PO DAILYPRN PRN ed 12/30/22 05/26/24 History
fluoxetine 20 mg capsule 20 mg PO DAILY Depression 10/12/23 05/26/24 History
potassium chloride 10 mEq 10 meq PO DAILY@1130 Electrolyte 10/12/23 05/26/24 History
tablet,extended release Repletion
ferrous sulfate 325 mg (65 mg 325 mg PO DAILY@1320 Electrolyte 05/26/24 05/26/24 History
iron) tablet Repletion
furosemide 20 mg tablet (Lasix) 20 mg PO DAILY@1500 Fluid 05/26/24 05/26/24 History
Retention/Swelling
metoprolol succinate 50 mg 50 mg PO HS Blood Pressure 05/26/24 05/26/24 History
tablet,extended release 24 hr
Review of Systems
-
All other systems: Negative unless noted
Abdomen/GI: Abdominal Pain
Physical Exam
Vital Signs
Temp Pulse Resp BP Pulse Ox
98.1 F 71 16 116/55 97
05/27/24 11:36 05/27/24 11:36 05/27/24 11:36 05/27/24 11:36 05/27/24 11:36
Lab Results
05/27/24 06:29
05/27/24 06:29
Troponin I < 0.012 ng/ml 05/26/24 12:45
[id number] Pept 7040 pg/ml 05/26/24 12:45
Physical Exam
General: Well Developed and Well Nourished
HEENT: Normocephalic and Anicteric
Respiratory: Clear
Cardiac: S1/S2 and Regular Rhythm
Breast: Deferred by me
GI: Soft and Non Tender (Tender in the right upper quadrant)
Rectal: Deferred by Provider
Musculoskeletal: No Clubbing and No Cyanosis
Skin: Warm, Dry and Rash
Neuro: Awake, Alert and Oriented
Hematologic/Lymphatic: No Lymphadenopathy
Psych: Calm
Impression / Plan
-
PCP:Dr. Patel
Candy Waffle Assembler: Dr. Barboza
EP: Dr. Hayden
Impression:
Presented with abdominal pain
Acute cholecystitis
History of sepsis secondary to presumed acute cholecystitis September 2023
Klebsiella pneumoniae bacteremia
Acute on chronic HFrEF
Cardiomyopathy, EF 35-40% by echo 05/2023
Accelerated junctional rhythm
h/o recurrent thoracenteses for B/L pleural effusions
s/p tissue MVR/MAZE/SHAYY ligation for severe MR with partial flail at [place] 02/25/22
h/o Bacteremia, Strep mutans, severe MR with partial flail by [facility] admission 02/04/22 until 02/17/22
h/o endocarditis in 2005 with resultant severe mitral regurgitation
Multifactorial anemia - GIB, CKD, iron deficiency
Paroxysmal atrial fibrillation
Chronic anticoagulation w/ Eliquis
HTN
Hyperlipidemia
CKD
Severe BHANU, on CPAP
Chronic back pain
Paraesophageal hernia repair 2001 with [facility] 2018
BPH
Gout
[facility] 02/09/2022: EF is preserved� with severe eccentric anteriorly directed MR with posterior leaflet prolapse, partial flail. Small echodensity on posterior leaflet consistent with old vegetation.
Intra-op [facility] 02/25/22: [place] study, EF 45-50% at end of case
Echo 05/20/2022: EF 30-35%, global hypokinesis, anteroseptal and apical akinesis, EF 30-35%.� Bioprosthetic mitral valve with trace to mild perivalvular mitral regurgitation, mean gradient 6 mmHg 3, severe left atrial dilatation, aortic sclerosis
with mild aortic regurgitation, small atrial septal defect close to the mitral annulus, with [id number] shunt, pleural effusions
ECHO 12/30/22: EF 15 to 20%, severe diffuse global hypokinesis, reduced RV global systolic function, bioprosthetic mitral valve with mean gradient 3 mmHg, mild to moderate TR, PAP 35 to 40 mmHg, small ASD/PFO present, right and left pleural effusion
present
Echo 06/04/2023: EF 35-40%, abnormal septal motion, redundant chordal structures and ventricle, stage I diastolic dysfunction, small-moderate PFO w/ left to right shunting, bioprosthetic MVR with peak/mean gradients 18/5 mmHg, mild TR, estimated PAP
30-44 mmHg
Echo 10/13/2023: EF 35%, thickened bioprosthetic mitral valve with peak/mean gradients 12/4 mmHg, trace AR, moderate TR, estimated PAP 45-50 mmHg, no clear/obvious vegetation.
Plan:
-Would proceed to any required surgical procedure without further cardiovascular testing. He is at moderate risk from a cardiovascular perspective for any procedure considered but given 2 separate acute presentations with cholecystitis would be
supportive of cholecystectomy or other temporizing measures as deemed necessary by general surgery.
-He may have postoperative arrhythmias although we can follow with you closely and would consider telemetry monitoring for 24 hours postoperatively.
-Careful attention to fluid balance will be important given his history of cardiomyopathy and is best we can keep intake equal to outtake.
-[place] to keep hemoglobin greater than 8 postoperatively
-We will follow with you
Data Reviewed
-
EKG: Tracing Personally Visualized and interpreted
Medical Tests (Nuc Med, Echo etc): Image Personally Visualized and interpreted
Labs: Labs Reviewed by me
Old Records: Reviewed
[2024-05-27 12:12] LABS: Lipase 38 U/L (23-300)
[2024-05-27] MEDS: KCL 10 MEQ PO (12:54)
[2024-05-27] MEDS: ZOSYN IV (13:03)
[2024-05-27] MEDS: STERILE WATER FOR INJECTION 10 ML IV (14:23)
[2024-05-27] MEDS: ROCEPHIN 1000 MG IV (14:23)
[2024-05-27] MEDS: FEOSOL PO ×2 (14:23→14:30)
[2024-05-27] MEDS: FLAGYL 500 MG PO ×2 (15:44→21:03)
--- NOTE | 2024-05-27 16:33 | CM ---
Patient with Dx Acute cholecystitis, HF, Possible pneumonia, Sepsis. Plan placement of cholecystostomy tube with IR tentatively 05/28. Room air. Receiving IV Abx.
Met with patient who resides with his Chan in a 2 story house with 2 CECI.
The patient has been independent in ADLs and ambulation.
He says that he is sometimes dizzy getting up due to having vertigo.
DME - RW, SPC, tub bench
VN - current with [facility]
SNF - none
AR - [facility]
PCP - Skip Patel
[email or web address]
Plan follow up after seen by PT/OT.
[2024-05-27] MEDS: DILAUDID 0.5 MG IV (21:02)
[2024-05-27] MEDS: PROSCAR 5 MG PO (21:03)
[2024-05-27] MEDS: LIPITOR 40 MG PO (21:03)
[2024-05-27] MEDS: ZYLOPRIM 200 MG PO (21:03)
[2024-05-27] MEDS: TOPROL XL 50 MG PO (21:03)
[2024-05-28] VITALS (13 sets, daily range): BP systolic 77–159; BP diastolic 57–79; PULSE 70–95; O2SAT 92; BMI 21.6
[2024-05-28] MEDS: DILAUDID 0.5 MG IV (04:01)
[2024-05-28 05:56] LABS: Hematocrit 38.8 % (39.0-52.0); Hemoglobin 12.8 g/dL (13.0-18.0); Mean Corpuscular Hgb 27.9 pg (27.0-31.0); Mean Corpuscular Volume 84.5 fL (80.0-94.0); Mean Platelet Volume 10.5 fL (7.4-10.4); Platelet Count 155 10^3/uL (130-400); Red Blood Cell Count 4.59 10^6/uL (4.70-6.10); Red Cell Dist. Width 17.9 % (11.5-14.5); White Blood Cell Count 19.7 10^3/uL (4.8-10.8)
[2024-05-28 06:06] LABS: INR 1.58; PT 18.7 Sec (11.4-14.6)
[2024-05-28 06:23] LABS: ALT (SGPT) 33 U/L (0-50); AST (SGOT) 61 U/L (17-59); Albumin 3.2 g/dl (3.5-5.0); Alkaline Phosphatase 92 U/L (38-126); Blood Urea Nitrogen 38 mg/dl (9-20); Calcium 8.7 mg/dl (8.4-10.2); Carbon Dioxide 25 mmol/L (22-30); Chloride 103 mmol/L (98-107); Direct Bilirubin 0.5 mg/dl (0.0-0.4); Estimated Creatinine Clearance 31 ml/min; Glucose 95 mg/dl (70-99); Magnesium 1.9 mg/dl (1.6-2.3); Phosphorus 3.6 mg/dl (2.5-4.5); Potassium 3.9 mmol/L (3.5-5.1); Sodium 136 mmol/L (135-145); Total Protein 6.8 g/dl (6.3-8.2); eGFR 36.11
[2024-05-28] MEDS: FARXIGA 10 MG PO (09:00)
[2024-05-28] MEDS: MAGNESIUM OXIDE 500 MG PO (09:00)
[2024-05-28] MEDS: PROZAC 20 MG PO (09:00)
[2024-05-28] MEDS: FLAGYL 500 MG PO ×3 (09:00→22:02)
[2024-05-28] MEDS: PROTONIX 40 MG PO (09:00)
--- NOTE | 2024-05-28 10:00 | W.PN.CARDCBS ---
Today's Communication / Plan
-
He is compensated from a cardiac standpoint for surgery or T-Tube placement without further cardiovascular testing. He is at moderate risk from a cardiovascular perspective for any procedure given his comorbidities but acceptable risk as he is
compensated.
He may have perioperative/periprocedure arrhythmias and we can monitor on tele for 24 hrs post procedures.
Given CM, avoid large fluid shifts. His EF however is much improved.
He appears euvolemic
Remains in sinus. Resume anticoagulation once ok with procedural physician.
Keep Hemoglobin greater than 8 post procedure.
Outpt follow up already scheduled with Dr Barboza
We will follow with you
Impression / Plan
-
.
PCP:Dr. Patel
It Architecture Consultant: Dr. Barboza
EP: Dr. Hayden
Impression:
Presented with abdominal pain
Acute cholecystitis
History of sepsis secondary to presumed acute cholecystitis September 2023
Cardiomyopathy, EF 40-45% by echo April 2024 ( EF 35-40% by echo 05/2023 )
Hx chronic HFrEF, hx recurrent thoracenteses for B/L pleural effusions
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
Hx Multifactorial anemia - GIB, CKD, iron deficiency
Paroxysmal atrial fibrillation on chronic anticoagulation w/ Eliquis
HTN
Hyperlipidemia
CKD
Severe BHANU, on CPAP
Chronic back pain
Paraesophageal hernia repair 2001 with ELIESER 2018
BPH
Gout
[facility] 02/09/2022: EF is preserved� with severe eccentric anteriorly directed MR with posterior leaflet prolapse, partial flail. Small echodensity on posterior leaflet consistent with old vegetation.
Intra-op [facility] 02/25/22: [facility] study, EF 45-50% at end of case
Echo 05/20/2022: EF 30-35%, global hypokinesis, anteroseptal and apical akinesis, EF 30-35%.� Bioprosthetic mitral valve with trace to mild perivalvular mitral regurgitation, mean gradient 6 mmHg 3, severe left atrial dilatation, aortic sclerosis
with mild aortic regurgitation, small atrial septal defect close to the mitral annulus, with [id number] shunt, pleural effusions
Echo 12/30/22: EF 15 to 20%, severe diffuse global hypokinesis, reduced RV global systolic function, bioprosthetic mitral valve with mean gradient 3 mmHg, mild to moderate TR, PAP 35 to 40 mmHg, small ASD/PFO present, right and left pleural effusion
present
Echo 06/04/2023: EF 35-40%, abnormal septal motion, redundant chordal structures and ventricle, stage I diastolic dysfunction, small-moderate PFO w/ left to right shunting, bioprosthetic MVR with peak/mean gradients 18/5 mmHg, mild TR, estimated PAP
30-44 mmHg
Echo 10/13/2023: EF 35%, thickened bioprosthetic mitral valve with peak/mean gradients 12/4 mmHg, trace AR, moderate TR, estimated PAP 45-50 mmHg, no clear/obvious vegetation.
Echo April 2024: EF 45-50% mild LVH, s/p bioprosthetic MVR, mean gradient 5 mmHg, no MR. mild TR with mod PHTN PASP 57 mmHg, compared to prior echo EF has improved from 35% and TR has improved.
Plan:
He is compensated from a cardiac standpoint for surgery or T-Tube placement without further cardiovascular testing. He is at moderate risk from a cardiovascular perspective for any procedure given his comorbidities but acceptable risk as he is
compensated.
He may have perioperative/periprocedure arrhythmias and we can monitor on tele for 24 hrs post procedures.
Given CM, avoid large fluid shifts. His EF however is much improved.
He appears euvolemic
Remains in sinus. Resume anticoagulation once ok with procedural physician.
Keep Hemoglobin greater than 8 post procedure.
Outpt follow up already scheduled with Dr Barboza
We will follow with you
Progress Note - It Architecture Consultant
Subjective
Date of Service: May 28, 2024
Pt seen and examined. No complaints. No chest pain or shortness of breath.
Objective
Labs:
05/28/24 05:39
05/28/24 05:39
Labs
Hgb 12.8 g/dL (13.0-18.0) L 05/28/24 05:39
Hct 38.8 % (39.0-52.0) L 05/28/24 05:39
Plt Count 155 10^3/uL (130-400) 05/28/24 05:39
PT 18.7 Sec (11.4-14.6) H 05/28/24 05:39
INR 1.58 05/28/24 05:39
APTT 43.0 Sec (23.4-35.0) H 05/28/24 05:39
Sodium 136 mmol/L (135-145) 05/28/24 05:39
Potassium 3.9 mmol/L (3.5-5.1) 05/28/24 05:39
BUN 38 mg/dl (9-20) H 05/28/24 05:39
Creatinine 1.9 mg/dL (0.7-1.3) H 05/28/24 05:39
Glucose 95 mg/dl (70-99) 05/28/24 05:39
Troponins
05/26/24
12:45
Troponin I < 0.012
Vital Signs and I&O:
Vital Signs
Temp Pulse Resp BP Pulse Ox
98.3 F 78 19 136/63 97
05/28/24 07:24 05/28/24 07:24 05/28/24 07:24 05/28/24 07:24 05/28/24 07:24
Vital Signs
Temp Pulse Resp BP Pulse Ox
98.3 F 78 19 136/63 97
05/28/24 07:24 05/28/24 07:24 05/28/24 07:24 05/28/24 07:24 05/28/24 07:24
Intake & Output
05/26/24 05/27/24 05/28/24 05/29/24
06:59 06:59 06:59 06:59
Intake Total 340 / 340 660 / 660
Output Total 425 / 425 500 / 500
Balance -85 / -85 160 / 160
Physical Exam
Physical Exam
General: No acute distress, AAOX3
Neck: Negative JVD
Heart: Regular, Negative S3 positive S1/S2, Negative S4, No murmur
Lungs: CTA b/l, negative wheezes/rales/rhonchi
Abd: Positive BS, NT/ND, neg rebound/rigidity/guarding
Ext: Negative cyanosis/clubbing/edema
Neuro: nonfocal
--- NOTE | 2024-05-28 10:37 | W.PN.GS2 ---
Today's Communication / Plan
-
-- IR cholecystostomy tube placement
Assessment / Plan
-
Patient is a 74 yo M p/w acute cholecystitis
Natural history and pathophysiology of cholecystitis was briefly reviewed. Options for management including cholecystostomy tube placement versus cholecystectomy were considered and discussed. Patient is at high risk for operative complications
given his length of presentation (now 4 days into current episode), increased risk of operative bleeding, and prior abdominal surgeries including open paraesophageal hernia repair and open ventral incisional hernia repair with permanent mesh
spanning the entire abdominal wall. Persistent symptoms and pain. Recommend cholecystostomy tube drainage at this time to allow for medical optimization and a more coordinated approach to what is likely going to be a difficult gallbladder.
Patient agrees with management strategy. All questions answered.
-- IR cholecystostomy tube placement
-- NPO, IVF
-- Abx: Ceftriaxone and Flagyl
-- Continue to hold Eliquis
Subjective Data
-
Date of Service: May 28, 2024
Persistent RUQ abdominal pain. No nausea or vomiting. No fevers.
Objective Data
-
Intake and Output
05/27/24 05/28/24 05/29/24
06:59 06:59 06:59
Intake Total 340 / 340 660 / 660
Output Total 425 / 425 500 / 500
Balance -85 / -85 160 / 160
Intake:
Oral fluids 240 / 240 660 / 660
IV piggybacks 100 / 100
Output:
Urine, Voided 425 / 425 500 / 500
Other:
Number of approximated MODERATE 2
amounts of urine
Vital Signs
Temp Pulse Resp BP Pulse Ox
98.3 F 78 19 136/63 97
05/28/24 07:24 05/28/24 07:24 05/28/24 07:24 05/28/24 07:24 05/28/24 07:24
Lab Results
05/28/24 05:39
05/28/24 05:39
Calcium 8.7 mg/dl (8.4-10.2) 05/28/24 05:39
Phosphorus 3.6 mg/dl (2.5-4.5) 05/28/24 05:39
Magnesium 1.9 mg/dl (1.6-2.3) 05/28/24 05:39
Total Bilirubin 2.0 mg/dl (0.2-1.3) H D 05/28/24 05:39
Direct Bilirubin 0.5 mg/dl (0.0-0.4) H 05/28/24 05:39
AST 61 U/L (17-59) H 05/28/24 05:39
ALT 33 U/L (0-50) 05/28/24 05:39
Alkaline Phosphatase 92 U/L (38-126) 05/28/24 05:39
Total Protein 6.8 g/dl (6.3-8.2) 05/28/24 05:39
Albumin 3.2 g/dl (3.5-5.0) L 05/28/24 05:39
Physical Exam
-
Gen: NAD
Abd: soft, tender to palpation in RUQ, positive Durán's sign, ND, non-peritoneal
--- NOTE | 2024-05-28 10:57 | W.PN.ID1 ---
Date of Service
Date of Service: May 28, 2024
Today's Communication
For perc jonel and cx.
Assessment / Plan
# Recurrent biliary colic and acute cholecystitis
# Leukocytosis worse
- hx Klebsiella cholangitis 09/2023. Pt did not follow-up with Surgeon for elective cholecystectomy
- For perc jonel, per Surgeon. Send culture, [facility]
- Blood cx neg to date
- Continue ceftriaxone, metronidazole.
- Trend wbc.
# Conditions present before admission
Chronic HFrEF
Paroxysmal Atrial Fibrillation
Strep mutans MV endocarditis (2005)
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
s/p bio-Mitral Valve Replacement / MAZE procedure / Left Atrial Appendage Ligation (at [facility] 02/25/2022)
Klebsiella bacteremia (09/2023) from acute cholecystitis, passed gallstone
Essential Hypertension
Hyperlipidemia
CKD Stage III
Anxiety/Depression
Gout
BHANU on CPAP
Inguinal Hernia Repair
Paraesophageal Hernia Repair
Ventral Hernia Repair
Inguinal hernia repair
Small bowel obstruction status post exploratory lap.
Chief Complaint
-: Other (cholecystitis)
Subjective / Review of Systems
RUQ pain controlled with pain meds
Vital Signs / Physical Exam
Vital Signs
Vital Signs
Temp Pulse Resp BP Pulse Ox
98.3 F 78 19 136/63 97
05/28/24 07:24 05/28/24 07:24 05/28/24 07:24 05/28/24 07:24 05/28/24 07:24
Physical Exam
Eyes: Other (sclera mild icteric)
Cardiovascular: Regular Rate and S1/S2
Pulmonary: Clear
Gastrointestinal: Soft, Tender (RUQ) and Normal Bowel Sounds
Extremities: Negative Edema
Neurological: AO x 3
Objective Data
Lab Data
Lab Results
05/28/24 05:39
05/28/24 05:39
PT 18.7 Sec (11.4-14.6) H 05/28/24 05:39
INR 1.58 05/28/24 05:39
APTT 43.0 Sec (23.4-35.0) H 05/28/24 05:39
Estimated Creat Clear 31 ml/min 05/28/24 05:39
Lactic Acid 1.1 mmol/L (0.7-2.0) 05/26/24 21:19
Total Bilirubin 2.0 mg/dl (0.2-1.3) H D 05/28/24 05:39
AST 61 U/L (17-59) H 05/28/24 05:39
ALT 33 U/L (0-50) 05/28/24 05:39
Alkaline Phosphatase 92 U/L (38-126) 05/28/24 05:39
Most recent labs reviewed.
Micro Results:
05/26/24 21:19 Blood Culture - Preliminary
Blood/Venous No Growth in 24 hours- Final report to follow
05/26/24 20:52 Blood Culture - Preliminary
Blood/Venous No Growth in 24 hours- Final report to follow
05/26/24 CXR: Cardiomegaly with mildly increased pulmonary vascularity suggesting suggesting mild CHF. Small bilateral pleural effusions, right greater than left.
Superimposed right basilar opacity such as pneumonia cannot be entirely excluded.
05/26/24 ABD US: Prominent size gallbladder with stones including at least one stone in the vicinity of the gallbladder neck. Gallbladder wall mildly thickened at 0.4 cm. Positive sonographic Durán's sign. No findings to suggest biliary tract
dilatation. OVERALL FINDINGS COULD REPRESENT ACUTE CHOLECYSTITIS.
[2024-05-28] MEDS: FEOSOL 325 MG PO (12:35)
[2024-05-28] MEDS: KCL 10 MEQ PO (12:35)
[2024-05-28] MEDS: DILAUDID IV (12:36)
[2024-05-28] MEDS: ROCEPHIN 1000 MG IV (12:37)
[2024-05-28] MEDS: STERILE WATER FOR INJECTION 10 ML IV (12:37)
--- NOTE | 2024-05-28 14:37 | W.PN.HOSP.TC ---
Today's Communication/Plan
-
cont iv abx
perc jonel today
Assessment / Plan
Assessment / Plan
Physical Exam
General: No pallor, cyanosis, or jaundice.
HEENT: Throat clear. PERRLA Normocephalic atraumatic hard of hearing
NECK: Supple. No JVD Carotid Bruits
RESPIRATORY: Bibasilar crackles
CVS: S1, S2 normal. RRR. No murmur, rub or gallop.
ABDOMEN: Soft, tender distended. BS+/normal.
EXTREMITIES: No peripheral cyanosis or edema.
VOCAL ARTIST: AOx3.
74 male A-fib Eliquis history HFrEF recovered EF hypertension hyperlipidemia CKD 3 mitral valve bioprosthetic ventral hernia repair presents with new onset abdomen pain diffuse that woke him up from sleep last night associated with nausea dry heaves
and chills. Abdomen ultrasound consistent with acute cholecystitis. Afebrile mild leukocytosis noted in labs. Patient developed hypoxic insufficiency/failure requiring 2 L following pain medications and a liter bolus given in ED. Chest x-ray
suggestive of heart failure and possible right basilar pneumonia.
#Acute cholecystitis
#Transaminitis
#Sepsis
-abdominal US suggestive acute cholecystitis
-ID eval appreciated zosyn narrowed to ceftriaxone and flagyll
-Surgery consult appreciated ok for clears, IR consulted for cholecystostomy tube in AM Mon 05/28. Patient high risk for surgical intervention at this time
#CKD stage 3
-cr appears stable 1.5-1.6
# History HFrEF recovered EF
#Hx Mitral Valve Endocarditis s/p MVR
#Acute hypoxic insufficiency/failure possibly due to acute on chronic HFpEF (resolved)
Echo 05/22/24 noted preserved EF 45 to 50% bioprosthetic mitral valve, improved EF from September 2023 35%
-continue Farxiga
-Monitor Is&Os and Daily Weights
-BNP elevated but has had similar high values in past if not higher
-chest x ray suggestive heart failure small b/l pleural effusions possible pna (on abx as above)
-weaned off oxygen supplementation after once lasix 20 mg IV 05/27
# Iron deficiency anemia
-Ferrous sulfate continued
# BPH
-Finasteride continued
#Paroxysmal Atrial Fibrillation
-Hold Eliquis for possible surgical intervention
-Continue metoprolol
-cardiology consult appreciated
# GERD
-PPI continued
#Essential Hypertension
-Continue metoprolol with hold parameter
hydralazine prn
#Anxiety/Depression
-Continue fluoxetine, Ativan continued
# Gout
-Allopurinol continued
# Hyperlipidemia
-Statin continued
#Dizziness/Vertigo when standing
monitor orthostatic vitals
fall precautions
PT/OT eval
DVT proph: SCDs
Code Status: Full Code
I spent a total of 55 minutes with the patient or on the floor. More than 50% of this time involved counseling and coordination of care.
Anticipated Discharge: > 48 hours
Subjective/Interval History
-
Date of Service: May 28, 2024
no acute events
Objective Data
-
Labs:
Laboratory Results
05/28/24
05:39
WBC 19.7 H
Hgb 12.8 L
Hct 38.8 L
Plt Count 155
PT 18.7 H
INR 1.58
APTT 43.0 H
Sodium 136
Potassium 3.9
Chloride 103
Carbon Dioxide 25
BUN 38 H
Creatinine 1.9 H
Glucose 95
Calcium 8.7
Total Bilirubin 2.0 H D
AST 61 H
ALT 33
Alkaline Phosphatase 92
Vital Signs:
Vital Signs
Temp Pulse Resp BP Pulse Ox
98.3 F 79 23 142/77 93
05/28/24 14:00 05/28/24 14:15 05/28/24 14:15 05/28/24 14:15 05/28/24 14:15
I&O
05/27/24 05/28/24 05/29/24
06:59 06:59 06:59
Intake Total 340 / 340 660 / 660 100 / 100
Output Total 425 / 425 500 / 500
Balance -85 / -85 160 / 160 100 / 100
Review of Systems
-
History Source: Patient and Coordinated Provider
Respiratory: Reports No Symptoms
Cardiac: Reports No Symptoms
Abdomen/GI: Reports Abdominal Pain (RUQ pain at time of admission, now resolved)
Musculoskeletal: Reports No Symptoms
Physical Exam
-
General: Well Developed, Well Nourished and No Apparent Distress
HEENT: Normocephalic and Atraumatic
Respiratory: Clear to Auscultation; Negative Wheezes or Rhonchi
Cardiac: Irregular Rhythm; Negative Murmur
GI: Soft, Nontender, Nondistended and Normal Bowel Sounds
Musculoskeletal: No Clubbing, No Cyanosis and No Edema
Skin: Warm
Neuro: Awake
Psych: Calm
Data Reviewed
-
Diagnostic Radiology: Image personally visualized and interpreted and Report Reviewed by me
Ultrasound: Report Reviewed by me
Labs: Labs Reviewed by me
--- NOTE | 2024-05-28 15:27 | CM ---
print production manager continues to follow with patient and patient did well with PT/OT no skilled needs, patient is not current with visiting nurses and he is not sure if he will need them at discharge.
Plan; To follow with patient and assist with discharge planning.
[2024-05-28] MEDS: ZYLOPRIM 200 MG PO (16:40)
[2024-05-28] MEDS: LIPITOR 40 MG PO (22:01)
[2024-05-28] MEDS: TOPROL XL 50 MG PO (22:02)
[2024-05-28] MEDS: PROSCAR 5 MG PO (22:02)
[2024-05-29] VITALS (7 sets, daily range): BP systolic 104–140; BP diastolic 56–78; PULSE 69–75; BMI 21.6
[2024-05-29 07:14] LABS: Hematocrit 39.1 % (39.0-52.0); Hemoglobin 12.7 g/dL (13.0-18.0); Mean Corp Hgb Conc. 32.5 g/dL (33.0-37.0); Mean Corpuscular Hgb 27.6 pg (27.0-31.0); Mean Platelet Volume 10.2 fL (7.4-10.4); Platelet Count 164 10^3/uL (130-400); White Blood Cell Count 14.4 10^3/uL (4.8-10.8)
[2024-05-29 08:01] LABS: ALT (SGPT) 25 U/L (0-50); AST (SGOT) 42 U/L (17-59); Albumin 2.9 g/dl (3.5-5.0); Alkaline Phosphatase 109 U/L (38-126); Blood Urea Nitrogen 45 mg/dl (9-20); Calcium 8.6 mg/dl (8.4-10.2); Carbon Dioxide 24 mmol/L (22-30); Chloride 103 mmol/L (98-107); Estimated Creatinine Clearance 35 ml/min; Glucose 102 mg/dl (70-99); Magnesium 2.3 mg/dl (1.6-2.3); Phosphorus 2.5 mg/dl (2.5-4.5); Sodium 137 mmol/L (135-145); Total Protein 6.2 g/dl (6.3-8.2); eGFR 41.26
[2024-05-29] MEDS: PROTONIX 40 MG PO (08:44)
[2024-05-29] MEDS: PROZAC 20 MG PO (08:44)
[2024-05-29] MEDS: FLAGYL 500 MG PO ×3 (08:44→21:37)
[2024-05-29] MEDS: FARXIGA 10 MG PO (08:44)
[2024-05-29] MEDS: MAGNESIUM OXIDE 500 MG PO (08:44)
--- NOTE | 2024-05-29 10:06 | W.PN.GS2 ---
Today's Communication / Plan
-
-- No plans for surgery
-- Low fat diet
-- Abx: Ceftriaxone and Flagyl, ID on board
-- Eliquis dose per IR
-- IR tube maintenance per IR, flush daily
-- Outpatient follow-up with [facility] in 1-2 weeks to discuss cholecystectomy
Assessment / Plan
-
Patient is a 74 yo M p/w acute cholecystitis
Recovering well post cholecystostomy tube placement. Plan for outpatient follow-up in 1 to 2 weeks. Will need to discuss interval cholecystectomy in 4 to 6 weeks.
-- No plans for surgery
-- Low fat diet
-- Abx: Ceftriaxone and Flagyl, ID on board
-- Eliquis dose per IR
-- Outpatient follow-up with [facility] in 1-2 weeks to discuss cholecystectomy
Subjective Data
-
Date of Service: May 29, 2024
Feels much improved. Slight soreness at tube insertion site, deeper abdominal pain has resolved. Tolerating a low-fat diet without any nausea or vomiting. Afebrile.
Objective Data
-
Intake and Output
05/28/24 05/29/24 05/30/24
06:59 06:59 06:59
Intake Total 660 / 660 220 / 220
Output Total 500 / 500 1150 / 1150
Balance 160 / 160 -930 / -930
Intake:
Oral fluids 660 / 660 120 / 120
IV piggybacks 100 / 100
Output:
Drain Output (Total) 175 / 175
Right Upper Abdomen Placed in 175 / 175
IR
Urine, Voided 500 / 500 975 / 975
Other:
Number of approximated MODERATE 2
amounts of urine
Vital Signs
Temp Pulse Resp BP Pulse Ox
98.2 F 69 20 131/66 95
05/29/24 07:40 05/29/24 07:40 05/29/24 07:40 05/29/24 07:40 05/29/24 07:40
Lab Results
05/29/24 05:26
05/29/24 05:26
Calcium 8.6 mg/dl (8.4-10.2) 05/29/24 05:26
Phosphorus 2.5 mg/dl (2.5-4.5) 05/29/24 05:26
Magnesium 2.3 mg/dl (1.6-2.3) 05/29/24 05:26
Total Bilirubin 1.0 mg/dl (0.2-1.3) D 05/29/24 05:26
Direct Bilirubin 0.5 mg/dl (0.0-0.4) H 05/28/24 05:39
AST 42 U/L (17-59) 05/29/24 05:26
ALT 25 U/L (0-50) 05/29/24 05:26
Alkaline Phosphatase 109 U/L (38-126) 05/29/24 05:26
Total Protein 6.2 g/dl (6.3-8.2) L 05/29/24 05:26
Albumin 2.9 g/dl (3.5-5.0) L 05/29/24 05:26
Physical Exam
-
Gen: NAD
Abd: soft, minimal tenderness at tube insertion site, ND, non-peritoneal, IR drain with clear bile slight debris
--- NOTE | 2024-05-29 11:28 | W.PN.ID1 ---
Date of Service
Date of Service: May 29, 2024
Today's Communication
Continue ceftriaxone, metronidazole (d3 abx)
When final cx data available, will transition to outpt po abx.
Assessment / Plan
# Recurrent biliary colic/acute cholecystitis
# Leukocytosis improving
- hx Klebsiella cholangitis 09/2023. Pt did not follow-up with Surgeon for elective cholecystectomy
- 05/28/24 s/p perc cholecystostomy
- Blood cx neg to date
- Follow bile cx
- Continue ceftriaxone, metronidazole (d3 abx)
-When final cx data available, will transition to outpt po abx.
- Follow wbc.
# Conditions present before admission
Chronic HFrEF
Paroxysmal Atrial Fibrillation
Strep mutans MV endocarditis (2005)
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
s/p bio-Mitral Valve Replacement / MAZE procedure / Left Atrial Appendage Ligation (at [facility] 02/25/2022)
Klebsiella bacteremia (09/2023) from acute cholecystitis, passed gallstone
Essential Hypertension
Hyperlipidemia
CKD Stage III
Anxiety/Depression
Gout
BHANU on CPAP
Inguinal Hernia Repair
Paraesophageal Hernia Repair
Ventral Hernia Repair
Inguinal hernia repair
Small bowel obstruction status post exploratory lap.
Chief Complaint
-: Other (cholecystitis)
Subjective / Review of Systems
Abd pain better after perc jonel.
Vital Signs / Physical Exam
Vital Signs
Vital Signs
Temp Pulse Resp BP Pulse Ox
98.2 F 69 20 131/66 95
05/29/24 07:40 05/29/24 07:40 05/29/24 07:40 05/29/24 07:40 05/29/24 07:40
Physical Exam
Constitutional: No Acute Distress and Comfortable
Cardiovascular: Regular Rate and S1/S2
Pulmonary: Clear
Gastrointestinal: Soft and Tender (minimal RUQ tenderness)
Extremities: Negative Edema
Objective Data
Lab Data
Lab Results
05/29/24 05:26
05/29/24 05:26
PT 18.7 Sec (11.4-14.6) H 05/28/24 05:39
INR 1.58 05/28/24 05:39
APTT 43.0 Sec (23.4-35.0) H 05/28/24 05:39
Estimated Creat Clear 35 ml/min 05/29/24 05:26
Lactic Acid 1.1 mmol/L (0.7-2.0) 05/26/24 21:19
Total Bilirubin 1.0 mg/dl (0.2-1.3) D 05/29/24 05:26
AST 42 U/L (17-59) 05/29/24 05:26
ALT 25 U/L (0-50) 05/29/24 05:26
Alkaline Phosphatase 109 U/L (38-126) 05/29/24 05:26
Most recent labs reviewed.
Micro Results:
05/28/24 13:50 Anaerobic Culture - Preliminary
Bile Culture pending. Anaerobic cultures are examined after 3
days incubation. Additional information to follow.
05/28/24 13:50 Body Fluid Culture - Preliminary
Bile Gram Stain - Preliminary
05/26/24 21:19 Blood Culture - Preliminary
Blood/Venous No Growth in 48 hours- Final report to follow
05/26/24 20:52 Blood Culture - Preliminary
Blood/Venous No Growth in 48 hours- Final report to follow
05/26/24 CXR: Cardiomegaly with mildly increased pulmonary vascularity suggesting suggesting mild CHF. Small bilateral pleural effusions, right greater than left.
Superimposed right basilar opacity such as pneumonia cannot be entirely excluded.
05/26/24 ABD US: Prominent size gallbladder with stones including at least one stone in the vicinity of the gallbladder neck. Gallbladder wall mildly thickened at 0.4 cm. Positive sonographic Durán's sign. No findings to suggest biliary tract
dilatation. OVERALL FINDINGS COULD REPRESENT ACUTE CHOLECYSTITIS.
--- NOTE | 2024-05-29 12:42 | W.PN.CARDCBS ---
Addendum entered and electronically signed by Naren Barboza DO 05/29/24 14:36:
I saw and examined the patient.
The President + Publisher's note was reviewed and I agree with the note.
Comment:
Plan:
Resume Eliquis when ok from procedure standpoint
Stable cv status
Outpt follow up already scheduled
Recent echo reviewed
Please recall if needed.
Original Note:
Today's Communication / Plan
-
Resume usual dose of Eliquis
Stable for d/c from cardiac standpoint
Impression / Plan
-
PCP:Dr. Patel
Quality Liaison: Dr. Barboza
EP: Dr. Hayden
Impression:
Presented with abdominal pain
Acute cholecystitis
History of sepsis secondary to presumed acute cholecystitis September 2023
Cardiomyopathy, EF 40-45% by echo April 2024 ( EF 35-40% by echo 05/2023 )
Hx chronic HFrEF, hx recurrent thoracenteses for B/L pleural effusions
s/p tissue MVR/MAZE/SHAYY ligation for severe MR with partial flail at [facility] January 2022
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
Hx Multifactorial anemia - GIB, CKD, iron deficiency
Paroxysmal atrial fibrillation on chronic anticoagulation w/ Eliquis
HTN
Hyperlipidemia
CKD
Severe BHANU, on CPAP
Chronic back pain
Paraesophageal hernia repair 2001 with ELIESER 2018
BPH
Gout
[facility] 02/09/2022: EF is preserved� with severe eccentric anteriorly directed MR with posterior leaflet prolapse, partial flail. Small echodensity on posterior leaflet consistent with old vegetation.
Intra-op [facility] 02/25/22: [facility] study, EF 45-50% at end of case
Echo 05/20/2022: EF 30-35%, global hypokinesis, anteroseptal and apical akinesis, EF 30-35%.� Bioprosthetic mitral valve with trace to mild perivalvular mitral regurgitation, mean gradient 6 mmHg 3, severe left atrial dilatation, aortic sclerosis
with mild aortic regurgitation, small atrial septal defect close to the mitral annulus, with [id number] shunt, pleural effusions
Echo 12/30/22: EF 15 to 20%, severe diffuse global hypokinesis, reduced RV global systolic function, bioprosthetic mitral valve with mean gradient 3 mmHg, mild to moderate TR, PAP 35 to 40 mmHg, small ASD/PFO present, right and left pleural effusion
present
Echo 06/04/2023: EF 35-40%, abnormal septal motion, redundant chordal structures and ventricle, stage I diastolic dysfunction, small-moderate PFO w/ left to right shunting, bioprosthetic MVR with peak/mean gradients 18/5 mmHg, mild TR, estimated PAP
30-44 mmHg
Echo 10/13/2023: EF 35%, thickened bioprosthetic mitral valve with peak/mean gradients 12/4 mmHg, trace AR, moderate TR, estimated PAP 45-50 mmHg, no clear/obvious vegetation.
Echo April 2024: EF 45-50% mild LVH, s/p bioprosthetic MVR, mean gradient 5 mmHg, no MR. mild TR with mod PHTN PASP 57 mmHg, compared to prior echo EF has improved from 35% and TR has improved.
Plan:
-Patient had cholecystostomy tube placed in IR on 05/28/24 and it is draining to bag. There are no plans for surgery at this time, but patient is following up with general surgery for consideration of cholecystectomy as an outpatient in the future.
-From a CV perspective patient remains in SR.
-Outpatient dose of Eliquis 2.5 mg BID (age 74, Cre 1.7 and wt 66 kg) has been on hold since admission for possible surgery. Will resume as no surgery is planned in the short-term. Not sure why the lower dose of Eliquis is ordered for patient, but
this appears to be his chronic outpatient dose will defer to outpatient mobile heavy equipment mechanic.
-EF as low as 15-20% in 12/2022, but improved to 45% by echo 05/22/24. Cont Toprol XL 50 mg daily and Farxiga 10 mg daily.
-Patient is stable for d/c from a cardiac standpoint on 05/29/24 and should resume his usual meds including Eliquis. Cardiology f/u arranged
Progress Note - Quality Liaison
Subjective
Date of Service: May 29, 2024
He feels well and wants to go home
Objective
Labs:
05/29/24 05:26
05/29/24 05:26
Labs
Hgb 12.7 g/dL (13.0-18.0) L 05/29/24 05:26
Hct 39.1 % (39.0-52.0) 05/29/24 05:26
Plt Count 164 10^3/uL (130-400) 05/29/24 05:26
PT 18.7 Sec (11.4-14.6) H 05/28/24 05:39
INR 1.58 05/28/24 05:39
APTT 43.0 Sec (23.4-35.0) H 05/28/24 05:39
Sodium 137 mmol/L (135-145) 05/29/24 05:26
Potassium 4.0 mmol/L (3.5-5.1) 05/29/24 05:26
BUN 45 mg/dl (9-20) H 05/29/24 05:26
Creatinine 1.7 mg/dL (0.7-1.3) H 05/29/24 05:26
Glucose 102 mg/dl (70-99) H 05/29/24 05:26
Troponins
05/26/24
12:45
Troponin I < 0.012
Vital Signs and I&O:
Vital Signs
Temp Pulse Resp BP Pulse Ox
98.3 F 70 21 124/78 96
05/29/24 11:36 05/29/24 11:36 05/29/24 11:36 05/29/24 11:36 05/29/24 11:36
Vital Signs
Temp Pulse Resp BP Pulse Ox
98.3 F 70 21 124/78 96
05/29/24 11:36 05/29/24 11:36 05/29/24 11:36 05/29/24 11:36 05/29/24 11:36
Intake & Output
05/27/24 05/28/24 05/29/24 05/30/24
06:59 06:59 06:59 06:59
Intake Total 340 / 340 660 / 660 220 / 220
Output Total 425 / 425 500 / 500 1150 / 1150
Balance -85 / -85 160 / 160 -930 / -930
Physical Exam
Physical Exam
General: AAOX3
HEENT: EOMI
Heart: SR on tele
Lungs: No audible wheeze
Abd: Cholecystostomy tube in place and draining
Ext: No edema B/L
Neuro: nonfocal
[2024-05-29] MEDS: KCL 10 MEQ PO (13:06)
[2024-05-29] MEDS: ROCEPHIN 1000 MG IV (13:07)
[2024-05-29] MEDS: FEOSOL PO ×2 (13:07→13:09)
[2024-05-29] MEDS: STERILE WATER FOR INJECTION 10 ML IV (13:07)
--- NOTE | 2024-05-29 13:46 | W.PN.HOSP.TC ---
Today's Communication/Plan
-
resume eliquis
fu final cultures
Assessment / Plan
Assessment / Plan
Physical Exam
General: No pallor, cyanosis, or jaundice.
HEENT: Throat clear. PERRLA Normocephalic atraumatic hard of hearing
NECK: Supple. No JVD Carotid Bruits
RESPIRATORY: Bibasilar crackles
CVS: S1, S2 normal. RRR. No murmur, rub or gallop.
ABDOMEN: Soft, tender distended. BS+/normal.
EXTREMITIES: No peripheral cyanosis or edema.
GINNER HELPER: AOx3.
74 male A-fib Eliquis history HFrEF recovered EF hypertension hyperlipidemia CKD 3 mitral valve bioprosthetic ventral hernia repair presents with new onset abdomen pain diffuse that woke him up from sleep last night associated with nausea dry heaves
and chills. Abdomen ultrasound consistent with acute cholecystitis. Afebrile mild leukocytosis noted in labs. Patient developed hypoxic insufficiency/failure requiring 2 L following pain medications and a liter bolus given in ED. Chest x-ray
suggestive of heart failure and possible right basilar pneumonia.
#Acute cholecystitis
#Transaminitis
#Sepsis
-abdominal US suggestive acute cholecystitis
-ID eval appreciated zosyn narrowed to ceftriaxone and flagyl - - f.u cultures
-Surgery consult appreciated ok for clears, cholecystostomy tube 05/28. Patient high risk for surgical intervention at this time
#CKD stage 3
-cr appears stable 1.5-1.6
# History HFrEF recovered EF
#Hx Mitral Valve Endocarditis s/p MVR
#Acute hypoxic insufficiency/failure possibly due to acute on chronic HFpEF (resolved)
Echo 05/22/24 noted preserved EF 45 to 50% bioprosthetic mitral valve, improved EF from September 2023 35%
-continue Farxiga
-Monitor Is&Os and Daily Weights
-BNP elevated but has had similar high values in past if not higher
-chest x ray suggestive heart failure small b/l pleural effusions possible pna (on abx as above)
-weaned off oxygen supplementation after once lasix 20 mg IV 05/27
# Iron deficiency anemia
-Ferrous sulfate continued
# BPH
-Finasteride continued
#Paroxysmal Atrial Fibrillation
-resume Eliquis
-Continue metoprolol
-cardiology consult appreciated
# GERD
-PPI continued
#Essential Hypertension
-Continue metoprolol with hold parameter
hydralazine prn
#Anxiety/Depression
-Continue fluoxetine, Ativan continued
# Gout
-Allopurinol continued
# Hyperlipidemia
-Statin continued
#Dizziness/Vertigo when standing
monitor orthostatic vitals
fall precautions
PT/OT eval
DVT proph: SCDs
Code Status: Full Code
Anticipated Discharge: 24 - 48 hours
Subjective/Interval History
-
Date of Service: May 29, 2024
no acute events; perc jonel tube draining well
Objective Data
-
Labs:
Laboratory Results
05/29/24
05:26
WBC 14.4 H
Hgb 12.7 L
Hct 39.1
Plt Count 164
Sodium 137
Potassium 4.0
Chloride 103
Carbon Dioxide 24
BUN 45 H
Creatinine 1.7 H
Glucose 102 H
Calcium 8.6
Total Bilirubin 1.0 D
AST 42
ALT 25
Alkaline Phosphatase 109
Vital Signs:
Vital Signs
Temp Pulse Resp BP Pulse Ox
98.3 F 70 21 124/78 96
05/29/24 11:36 05/29/24 11:36 05/29/24 11:36 05/29/24 11:36 05/29/24 11:36
I&O
05/28/24 05/29/24 05/30/24
06:59 06:59 06:59
Intake Total 660 / 660 220 / 220
Output Total 500 / 500 1150 / 1150
Balance 160 / 160 -930 / -930
Review of Systems
-
History Source: Patient
All other systems: Not reviewed unless documented
Physical Exam
-
General: Well Developed, Well Nourished and No Apparent Distress
HEENT: Normocephalic and Atraumatic
Respiratory: Clear to Auscultation; Negative Wheezes or Rhonchi
Cardiac: Irregular Rhythm; Negative Murmur
GI: Soft, Nontender, Nondistended and Normal Bowel Sounds
Musculoskeletal: No Clubbing, No Cyanosis and No Edema
Skin: Warm
Neuro: Awake
Psych: Calm
Data Reviewed
-
Diagnostic Radiology: Image personally visualized and interpreted and Report Reviewed by me
Ultrasound: Report Reviewed by me
Labs: Labs Reviewed by me
--- NOTE | 2024-05-29 14:23 | CM ---
Chart reviewed and patint did well with physicial therapy and plan is to home with .
Plan; Home with .
[2024-05-29] MEDS: ZYLOPRIM 200 MG PO (17:14)
[2024-05-29] MEDS: TOPROL XL 50 MG PO (21:37)
[2024-05-29] MEDS: PROSCAR 5 MG PO (21:37)
[2024-05-29] MEDS: ELIQUIS 2.5 MG PO (21:37)
[2024-05-29] MEDS: LIPITOR 40 MG PO (21:38)
[2024-05-30] MEDS: ATIVAN 0.5 MG PO (00:13)
[2024-05-30 03:24] VITALS: BP 132/62
[2024-05-30 06:00] VITALS: BMI 21.5
[2024-05-30] MEDS: MAGNESIUM OXIDE 500 MG PO (07:23)
[2024-05-30] MEDS: PROTONIX 40 MG PO (07:23)
[2024-05-30] MEDS: FLAGYL 500 MG PO (07:23)
[2024-05-30] MEDS: FARXIGA 10 MG PO (07:23)
[2024-05-30 07:24] VITALS: BP 130/70; BP 132/63; BP 132/64; BP 135/69; PULSE 71; PULSE 73; PULSE 80
[2024-05-30] MEDS: PROZAC 20 MG PO (07:24)
[2024-05-30] MEDS: ELIQUIS 2.5 MG PO ×2 (07:24→20:03)
[2024-05-30 07:37] LABS: Hematocrit 37.4 % (39.0-52.0); Hemoglobin 12.2 g/dL (13.0-18.0); Mean Corp Hgb Conc. 32.6 g/dL (33.0-37.0); Mean Corpuscular Hgb 27.5 pg (27.0-31.0); Mean Corpuscular Volume 84.4 fL (80.0-94.0); Mean Platelet Volume 10.3 fL (7.4-10.4); Platelet Count 166 10^3/uL (130-400); Red Blood Cell Count 4.43 10^6/uL (4.70-6.10); Red Cell Dist. Width 17.9 % (11.5-14.5)
[2024-05-30 08:00] LABS: ALT (SGPT) 20 U/L (0-50); AST (SGOT) 35 U/L (17-59); Albumin 2.8 g/dl (3.5-5.0); Alkaline Phosphatase 92 U/L (38-126); Blood Urea Nitrogen 42 mg/dl (9-20); Calcium 8.7 mg/dl (8.4-10.2); Carbon Dioxide 26 mmol/L (22-30); Chloride 105 mmol/L (98-107); Estimated Creatinine Clearance 37 ml/min; Glucose 101 mg/dl (70-99); Magnesium 2.2 mg/dl (1.6-2.3); Phosphorus 2.6 mg/dl (2.5-4.5); Potassium 3.7 mmol/L (3.5-5.1); Sodium 137 mmol/L (135-145); Total Bilirubin 0.8 mg/dl (0.2-1.3); eGFR 44.38
--- NOTE | 2024-05-30 09:12 | W.PN.HOSP.TC ---
Today's Communication/Plan
-
PO abx regimen
F/u Surgery, Cards, PCP outpatient
Assessment / Plan
Assessment / Plan
Physical Exam
General: No pallor, cyanosis, or jaundice.
HEENT: Throat clear. PERRLA Normocephalic atraumatic hard of hearing
NECK: Supple. No JVD Carotid Bruits
RESPIRATORY: Bibasilar crackles
CVS: S1, S2 normal. RRR. No murmur, rub or gallop.
ABDOMEN: Soft, tender distended. BS+/normal.
EXTREMITIES: No peripheral cyanosis or edema.
SENIOR SAFETY MANAGEMENT CONSULTANT: AOx3.
74 male A-fib Eliquis history HFrEF recovered EF hypertension hyperlipidemia CKD 3 mitral valve bioprosthetic ventral hernia repair presents with new onset abdomen pain diffuse that woke him up from sleep last night associated with nausea dry heaves
and chills. Abdomen ultrasound consistent with acute cholecystitis. Afebrile mild leukocytosis noted in labs. Patient developed hypoxic insufficiency/failure requiring 2 L following pain medications and a liter bolus given in ED. Chest x-ray
suggestive of heart failure and possible right basilar pneumonia.
#Acute cholecystitis
#Transaminitis
#Sepsis
-abdominal US suggestive acute cholecystitis
-ID eval appreciated zosyn narrowed to ceftriaxone and flagyl - - f.u cultures for final PO regimen
-Surgery consult appreciated ok for clears, cholecystostomy tube Mon 05/28. Patient high risk for surgical intervention at this time
#CKD stage 3
-cr appears stable 1.5-1.6
# History HFrEF recovered EF
#Hx Mitral Valve Endocarditis s/p MVR
#Acute hypoxic insufficiency/failure possibly due to acute on chronic HFpEF (resolved)
Echo 05/22/24 noted preserved EF 45 to 50% bioprosthetic mitral valve, improved EF from September 2023 35%
-continue Farxiga
-Monitor Is&Os and Daily Weights
-BNP elevated but has had similar high values in past if not higher
-chest x ray suggestive heart failure small b/l pleural effusions possible pna (on abx as above)
-weaned off oxygen supplementation after once lasix 20 mg IV 05/27
# Iron deficiency anemia
-Ferrous sulfate continued
# BPH
-Finasteride continued
#Paroxysmal Atrial Fibrillation
-resume Eliquis
-Continue metoprolol
-cardiology consult appreciated
# GERD
-PPI continued
#Essential Hypertension
-Continue metoprolol with hold parameter
hydralazine prn
#Anxiety/Depression
-Continue fluoxetine, Ativan continued
# Gout
-Allopurinol continued
# Hyperlipidemia
-Statin continued
#Dizziness/Vertigo when standing
monitor orthostatic vitals
fall precautions
PT/OT eval
DVT proph: Eliquis
Code Status: Full Code
More than 30 minutes spent in discharge including
Final examination of the patient
Summarizing hospital stay
Instructions for continuing care to all relevant caregivers
Preparation of discharge records, prescriptions, and referral forms
Total time spent (35 in minutes):
Anticipated Discharge: Today
Subjective/Interval History
-
Date of Service: May 30, 2024
No acute events overnight, abdominal: Normal bowel
Objective Data
-
Labs:
Laboratory Results
05/30/24
06:19
WBC 10.0
Hgb 12.2 L
Hct 37.4 L
Plt Count 166
Sodium 137
Potassium 3.7
Chloride 105
Carbon Dioxide 26
BUN 42 H
Creatinine 1.6 H
Glucose 101 H
Calcium 8.7
Total Bilirubin 0.8
AST 35
ALT 20
Alkaline Phosphatase 92
Vital Signs:
Vital Signs
Temp Pulse Resp BP Pulse Ox
98.3 F 71 21 132/63 97
05/30/24 07:24 05/30/24 07:24 05/30/24 07:24 05/30/24 07:24 05/30/24 07:24
I&O
05/29/24 05/30/24 05/31/24
06:59 06:59 06:59
Intake Total 220 / 220 600 / 600
Output Total 1150 / 1150 1050 / 1050
Balance -930 / -930 -450 / -450
Review of Systems
-
History Source: Patient
All other systems: Not reviewed unless documented
Data Reviewed
-
Diagnostic Radiology: Image personally visualized and interpreted and Report Reviewed by me
Ultrasound: Report Reviewed by me
Labs: Labs Reviewed by me
[2024-05-30 11:13] VITALS: BP 141/69
[2024-05-30] MEDS: KCL 10 MEQ PO (12:29)
[2024-05-30] MEDS: FEOSOL PO (12:33)
--- NOTE | 2024-05-30 13:05 | W.PN.GS2 ---
Today's Communication / Plan
-
s/o
Assessment / Plan
-
Patient is a 74 yo M p/w acute cholecystitis
Recovering well post cholecystostomy tube placement. Plan for outpatient follow-up in 1 to 2 weeks. Will need to discuss interval cholecystectomy in 4 to 6 weeks.
-- No plans for surgery
-- Low fat diet
-- Abx: Ceftriaxone and Flagyl, ID on board
-- Eliquis dose per IR
-- Outpatient follow-up with [facility] in 1-2 weeks to discuss cholecystectomy
-- Pls call with ?s
Subjective Data
-
Date of Service: May 30, 2024
No complaints
Objective Data
-
Intake and Output
05/29/24 05/30/24 05/31/24
06:59 06:59 06:59
Intake Total 220 / 220 600 / 600
Output Total 1150 / 1150 1050 / 1050
Balance -930 / -930 -450 / -450
Intake:
Oral fluids 120 / 120 600 / 600
IV piggybacks 100 / 100
Output:
Drain Output (Total) 175 / 175 150 / 150
Right Upper Abdomen Placed in 175 / 175 150 / 150
IR
Urine, Voided 975 / 975 900 / 900
Vital Signs
Temp Pulse Resp BP Pulse Ox
98.0 F 71 20 141/69 96
05/30/24 11:13 05/30/24 11:13 05/30/24 11:13 05/30/24 11:13 05/30/24 11:13
Lab Results
05/30/24 06:19
05/30/24 06:19
Calcium 8.7 mg/dl (8.4-10.2) 05/30/24 06:19
Phosphorus 2.6 mg/dl (2.5-4.5) 05/30/24 06:19
Magnesium 2.2 mg/dl (1.6-2.3) 05/30/24 06:19
Total Bilirubin 0.8 mg/dl (0.2-1.3) 05/30/24 06:19
Direct Bilirubin 0.5 mg/dl (0.0-0.4) H 05/28/24 05:39
AST 35 U/L (17-59) 05/30/24 06:19
ALT 20 U/L (0-50) 05/30/24 06:19
Alkaline Phosphatase 92 U/L (38-126) 05/30/24 06:19
Total Protein 6.0 g/dl (6.3-8.2) L 05/30/24 06:19
Albumin 2.8 g/dl (3.5-5.0) L 05/30/24 06:19
Physical Exam
-
Gen: NAD'
Abd: soft, approp ttp, drain with thin grant fluid
[2024-05-30] MEDS: STERILE WATER FOR INJECTION 10 ML IV (14:06)
[2024-05-30] MEDS: ROCEPHIN 1000 MG IV (14:07)
[2024-05-30 15:40] VITALS: BP 126/65
--- NOTE | 2024-05-30 17:05 | W.PN.ID1 ---
Date of Service
Date of Service: May 30, 2024
Today's Communication
- Follow bile cx: unidentified GNR, Pseudomonas and enterococcus
- start zosyn (d4 abx)
- last qtc 480, repeat in the AM
-When final cx data available, will transition to outpt po abx.
Assessment / Plan
# Recurrent biliary colic/acute cholecystitis
# Leukocytosis improving
- hx Klebsiella cholangitis 09/2023. Pt did not follow-up with Surgeon for elective cholecystectomy
- 05/28/24 s/p perc cholecystostomy
- Blood cx neg to date
- Follow bile cx: unidentified GNR, Pseudomonas and enterococcus
- start zosyn (d4 abx)
- last qtc 480, repeat in the AM
- When final cx data available, will transition to outpt po abx.
- Follow clinically
# Conditions present before admission
Chronic HFrEF
Paroxysmal Atrial Fibrillation
Strep mutans MV endocarditis (2005)
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
s/p bio-Mitral Valve Replacement / MAZE procedure / Left Atrial Appendage Ligation (at [facility] 02/25/2022)
Klebsiella bacteremia (09/2023) from acute cholecystitis, passed gallstone
Essential Hypertension
Hyperlipidemia
CKD Stage III
Anxiety/Depression
Gout
BHANU on CPAP
Inguinal Hernia Repair
Paraesophageal Hernia Repair
Ventral Hernia Repair
Inguinal hernia repair
Small bowel obstruction status post exploratory lap.
Chief Complaint
-: Other (cholecystitis)
Subjective / Review of Systems
afebrile
Bp stable
leukocytosis resolved
cr slowly improving
bile culture in progress
Vital Signs / Physical Exam
Vital Signs
Vital Signs
Temp Pulse Resp BP Pulse Ox
98.7 F 69 20 126/65 96
05/30/24 15:40 05/30/24 15:40 05/30/24 15:40 05/30/24 15:40 05/30/24 15:40
Physical Exam
Constitutional: No Acute Distress
Cardiovascular: Regular Rate and S1/S2; Negative Murmur or Rub
Pulmonary: Clear and Symmetric; Negative Wheezes or Rales
Gastrointestinal: Soft, Non Tender, Non Distended and Normal Bowel Sounds
Skin: Warm and Dry; Negative Rash or Jaundice
Objective Data
Lab Data
Lab Results
05/30/24 06:19
05/30/24 06:19
PT 18.7 Sec (11.4-14.6) H 05/28/24 05:39
INR 1.58 05/28/24 05:39
APTT 43.0 Sec (23.4-35.0) H 05/28/24 05:39
Estimated Creat Clear 37 ml/min 05/30/24 06:19
Lactic Acid 1.1 mmol/L (0.7-2.0) 05/26/24 21:19
Total Bilirubin 0.8 mg/dl (0.2-1.3) 05/30/24 06:19
AST 35 U/L (17-59) 05/30/24 06:19
ALT 20 U/L (0-50) 05/30/24 06:19
Alkaline Phosphatase 92 U/L (38-126) 05/30/24 06:19
Most recent labs reviewed.
Micro Results:
05/28/24 13:50 Body Fluid Culture - Preliminary
Bile Gram negative bacilli
Pseudomonas species
Enterococcus species
Gram Stain - Preliminary
05/26/24 21:19 Blood Culture - Preliminary
Blood/Venous No Growth in 72 hours- Final report to follow
05/26/24 20:52 Blood Culture - Preliminary
Blood/Venous No Growth in 72 hours- Final report to follow
05/28/24 13:50 Anaerobic Culture - Preliminary
Bile Culture pending. Anaerobic cultures are examined after 3
days incubation. Additional information to follow.
05/26/24 CXR: Cardiomegaly with mildly increased pulmonary vascularity suggesting suggesting mild CHF. Small bilateral pleural effusions, right greater than left.
Superimposed right basilar opacity such as pneumonia cannot be entirely excluded.
05/26/24 ABD US: Prominent size gallbladder with stones including at least one stone in the vicinity of the gallbladder neck. Gallbladder wall mildly thickened at 0.4 cm. Positive sonographic Durán's sign. No findings to suggest biliary tract
dilatation. OVERALL FINDINGS COULD REPRESENT ACUTE CHOLECYSTITIS.
[2024-05-30] MEDS: ZYLOPRIM 200 MG PO (17:15)
[2024-05-30] MEDS: FLAGYL PO (17:15)
[2024-05-30] MEDS: ZOSYN 50 IV ×2 (17:16→23:09)
[2024-05-30] MEDS: LIPITOR 40 MG PO (21:37)
[2024-05-30] MEDS: PROSCAR 5 MG PO (21:38)
[2024-05-30 21:56] VITALS: BP 122/58
[2024-05-30 23:00] VITALS: BP 122/57
[2024-05-30] MEDS: TOPROL XL PO (23:01)
[2024-05-31] MEDS: ATIVAN 0.5 MG PO (00:55)
[2024-05-31 06:00] VITALS: BMI 21.8
[2024-05-31] MEDS: ZOSYN 50 IV ×4 (06:14→23:12)
[2024-05-31 07:00] VITALS: BP 128/70; BP 129/65; BP 130/64; PULSE 69; PULSE 74; PULSE 82
[2024-05-31 07:32] LABS: Hematocrit 36.8 % (39.0-52.0); Hemoglobin 12.2 g/dL (13.0-18.0); Mean Corp Hgb Conc. 33.2 g/dL (33.0-37.0); Mean Corpuscular Hgb 27.7 pg (27.0-31.0); Mean Corpuscular Volume 83.6 fL (80.0-94.0); Mean Platelet Volume 10.4 fL (7.4-10.4); Platelet Count 170 10^3/uL (130-400); Red Cell Dist. Width 17.8 % (11.5-14.5); White Blood Cell Count 9.3 10^3/uL (4.8-10.8)
[2024-05-31 08:03] LABS: ALT (SGPT) 16 U/L (0-50); AST (SGOT) 30 U/L (17-59); Albumin 2.8 g/dl (3.5-5.0); Alkaline Phosphatase 94 U/L (38-126); Blood Urea Nitrogen 37 mg/dl (9-20); Calcium 8.8 mg/dl (8.4-10.2); Carbon Dioxide 24 mmol/L (22-30); Chloride 106 mmol/L (98-107); Estimated Creatinine Clearance 40 ml/min; Glucose 89 mg/dl (70-99); Magnesium 2.1 mg/dl (1.6-2.3); Phosphorus 2.7 mg/dl (2.5-4.5); Potassium 3.7 mmol/L (3.5-5.1); Sodium 137 mmol/L (135-145); Total Bilirubin 0.8 mg/dl (0.2-1.3); Total Protein 6.1 g/dl (6.3-8.2); eGFR 47.95
--- NOTE | 2024-05-31 09:23 | W.PN.HOSP.TC ---
Today's Communication/Plan
-
PO abx regimen once micro finalized
F/u Surgery, Cards, PCP outpatient
Assessment / Plan
Assessment / Plan
Physical Exam
General: No pallor, cyanosis, or jaundice.
HEENT: Throat clear. PERRLA Normocephalic atraumatic hard of hearing
NECK: Supple. No JVD Carotid Bruits
RESPIRATORY: Bibasilar crackles
CVS: S1, S2 normal. RRR. No murmur, rub or gallop.
ABDOMEN: Soft, tender distended. BS+/normal.
EXTREMITIES: No peripheral cyanosis or edema.
CUSTOMER SERVICE DISPATCHER: AOx3.
74 male A-fib Eliquis history HFrEF recovered EF hypertension hyperlipidemia CKD 3 mitral valve bioprosthetic ventral hernia repair presents with new onset abdomen pain diffuse that woke him up from sleep last night associated with nausea dry heaves
and chills. Abdomen ultrasound consistent with acute cholecystitis. Afebrile mild leukocytosis noted in labs. Patient developed hypoxic insufficiency/failure requiring 2 L following pain medications and a liter bolus given in ED. Chest x-ray
suggestive of heart failure and possible right basilar pneumonia.
#Acute cholecystitis
#Transaminitis
#Sepsis
-abdominal US suggestive acute cholecystitis
-ID eval appreciated zosyn narrowed to ceftriaxone and flagyl - - f.u cultures for final PO regimen
-cholecystostomy tube 05/28. Patient high risk for surgical intervention at this time
-Surgery consult appreciated ok for low-fat diet;
-Outpatient follow-up with [facility] in 1-2 weeks to discuss cholecystectomy
#CKD stage 3
-cr appears stable 1.5-1.6
# History HFrEF recovered EF
#Hx Mitral Valve Endocarditis s/p MVR
#Acute hypoxic insufficiency/failure possibly due to acute on chronic HFpEF (resolved)
Echo 05/22/24 noted preserved EF 45 to 50% bioprosthetic mitral valve, improved EF from September 2023 35%
-continue Farxiga
-Monitor Is&Os and Daily Weights
-BNP elevated but has had similar high values in past if not higher
-chest x ray suggestive heart failure small b/l pleural effusions possible pna (on abx as above)
-weaned off oxygen supplementation after once lasix 20 mg IV 05/27
# Iron deficiency anemia
-Ferrous sulfate continued
# BPH
-Finasteride continued
#Paroxysmal Atrial Fibrillation
-resume Eliquis
-Continue metoprolol
-cardiology consult appreciated
# GERD
-PPI continued
#Essential Hypertension
-Continue metoprolol with hold parameter
hydralazine prn
#Anxiety/Depression
-Continue fluoxetine, Ativan continued
# Gout
-Allopurinol continued
# Hyperlipidemia
-Statin continued
#Dizziness/Vertigo when standing
monitor orthostatic vitals
fall precautions
PT/OT eval
DVT proph: Eliquis
Code Status: Full Code
Anticipated Discharge: Within 24 hours
Subjective/Interval History
-
Date of Service: May 31, 2024
No acute events overnight
Objective Data
-
Labs:
Laboratory Results
05/31/24
06:23
WBC 9.3
Hgb 12.2 L
Hct 36.8 L
Plt Count 170
Sodium 137
Potassium 3.7
Chloride 106
Carbon Dioxide 24
BUN 37 H
Creatinine 1.5 H
Glucose 89
Calcium 8.8
Total Bilirubin 0.8
AST 30
ALT 16
Alkaline Phosphatase 94
Vital Signs:
Vital Signs
Temp Pulse Resp BP Pulse Ox
98 F 69 16 130/64 97
05/31/24 07:00 05/31/24 07:00 05/31/24 07:00 05/31/24 07:00 05/31/24 07:00
I&O
05/30/24 05/31/24 06/01/24
06:59 06:59 06:59
Intake Total 600 / 600 720 / 720
Output Total 1050 / 1050 780 / 780
Balance -450 / -450 -60 / -60
Review of Systems
-
History Source: Patient
All other systems: Not reviewed unless documented
Physical Exam
-
General: Well Developed, Well Nourished and No Apparent Distress
HEENT: Normocephalic and Atraumatic
Respiratory: Clear to Auscultation; Negative Wheezes or Rhonchi
Cardiac: Irregular Rhythm; Negative Murmur
GI: Soft, Nontender, Nondistended and Normal Bowel Sounds
Musculoskeletal: No Clubbing, No Cyanosis and No Edema
Skin: Warm
Neuro: Awake
Psych: Calm
Data Reviewed
-
Diagnostic Radiology: Image personally visualized and interpreted and Report Reviewed by me
Ultrasound: Report Reviewed by me
Labs: Labs Reviewed by me
[2024-05-31] MEDS: ELIQUIS 2.5 MG PO ×2 (10:49→20:05)
[2024-05-31] MEDS: PROTONIX 40 MG PO (10:49)
[2024-05-31] MEDS: PROZAC 20 MG PO (10:49)
[2024-05-31] MEDS: MAGNESIUM OXIDE 500 MG PO (10:50)
[2024-05-31] MEDS: FARXIGA 10 MG PO (10:50)
[2024-05-31] MEDS: VISBIOME 1 CAP PO (12:35)
[2024-05-31] MEDS: KCL 10 MEQ PO (12:35)
[2024-05-31] MEDS: FEOSOL PO (12:40)
--- NOTE | 2024-05-31 12:44 | W.PN.ID1 ---
Date of Service
Date of Service: May 31, 2024
Today's Communication
Continue antibiotics. Await further culture data
Assessment / Plan
# Recurrent biliary colic/acute cholecystitis
# Leukocytosis improving
- hx Klebsiella cholangitis 09/2023. Pt did not follow-up with Surgeon for elective cholecystectomy
- 05/28/24 s/p perc cholecystostomy
- Blood cx neg to date
- Follow bile cx: unidentified GNR, Pseudomonas and enterococcus
-Continue zosyn (d#5 abx)
- last qtc 480, repeat in the AM
- Await further culture data to guide antimicrobial selection and potential de-escalation.
- Follow clinically
# Conditions present before admission
Chronic HFrEF
Paroxysmal Atrial Fibrillation
Strep mutans MV endocarditis (2005)
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
s/p bio-Mitral Valve Replacement / MAZE procedure / Left Atrial Appendage Ligation (at [facility] 02/25/2022)
Klebsiella bacteremia (09/2023) from acute cholecystitis, passed gallstone
Essential Hypertension
Hyperlipidemia
CKD Stage III
Anxiety/Depression
Gout
BHANU on CPAP
Inguinal Hernia Repair
Paraesophageal Hernia Repair
Ventral Hernia Repair
Inguinal hernia repair
Small bowel obstruction status post exploratory lap.
Chief Complaint
-: Other (cholecystitis)
Subjective / Review of Systems
Review of Systems: No Fever and No Chills
Vital Signs / Physical Exam
Vital Signs
Vital Signs
Temp Pulse Resp BP Pulse Ox
98 F 69 16 130/64 97
05/31/24 07:00 05/31/24 07:00 05/31/24 07:00 05/31/24 07:00 05/31/24 07:00
Physical Exam
Constitutional: No Acute Distress
Pulmonary: Clear and Non Labored
Gastrointestinal: Soft, Non Tender, Non Distended, Normal Bowel Sounds and Other (Cholecystostomy tube in place.)
Skin: Warm and Dry; Negative Rash or Jaundice
Neurological: Awake and Alert
Psychological: Calm
Objective Data
Lab Data
Lab Results
05/31/24 06:23
05/31/24 06:23
PT 18.7 Sec (11.4-14.6) H 05/28/24 05:39
INR 1.58 05/28/24 05:39
APTT 43.0 Sec (23.4-35.0) H 05/28/24 05:39
Estimated Creat Clear 40 ml/min 05/31/24 06:23
Lactic Acid 1.1 mmol/L (0.7-2.0) 05/26/24 21:19
Total Bilirubin 0.8 mg/dl (0.2-1.3) 05/31/24 06:23
AST 30 U/L (17-59) 05/31/24 06:23
ALT 16 U/L (0-50) 05/31/24 06:23
Alkaline Phosphatase 94 U/L (38-126) 05/31/24 06:23
Most recent labs reviewed.
Micro Results:
05/28/24 13:50 Anaerobic Culture - Preliminary
Bile Culture pending. Anaerobic cultures are examined after 3
days incubation. Additional information to follow.
05/26/24 21:19 Blood Culture - Preliminary
Blood/Venous No Growth in 4 days- Final report to follow
05/26/24 20:52 Blood Culture - Preliminary
Blood/Venous No Growth in 4 days- Final report to follow
05/28/24 13:50 Body Fluid Culture - Preliminary
Bile Gram negative bacilli
Pseudomonas species
Enterococcus species
Gram Stain - Preliminary
05/26/24 CXR: Cardiomegaly with mildly increased pulmonary vascularity suggesting suggesting mild CHF. Small bilateral pleural effusions, right greater than left.
Superimposed right basilar opacity such as pneumonia cannot be entirely excluded.
05/26/24 ABD US: Prominent size gallbladder with stones including at least one stone in the vicinity of the gallbladder neck. Gallbladder wall mildly thickened at 0.4 cm. Positive sonographic Durán's sign. No findings to suggest biliary tract
dilatation. OVERALL FINDINGS COULD REPRESENT ACUTE CHOLECYSTITIS.
[2024-05-31] MEDS: LASIX 20 MG PO (14:48)
[2024-05-31 15:00] VITALS: BP 131/63
[2024-05-31] MEDS: ZYLOPRIM 200 MG PO (18:05)
[2024-05-31] MEDS: LIPITOR 40 MG PO (21:30)
[2024-05-31 21:31] VITALS: BP 136/68
[2024-05-31] MEDS: PROSCAR 5 MG PO (21:31)
[2024-05-31] MEDS: TOPROL XL PO (23:18)
[2024-05-31 23:24] VITALS: BP 125/67
[2024-06-01] MEDS: ATIVAN 0.5 MG PO (00:52)
[2024-06-01 05:26] VITALS: BMI 22.1
[2024-06-01] MEDS: ZOSYN 50 IV ×2 (05:44→12:25)
[2024-06-01 05:51] VITALS: BMI 21.3
[2024-06-01 07:00] VITALS: BP 137/66
--- NOTE | 2024-06-01 08:14 | W.PN.HOSP.TC ---
Addendum entered and electronically signed by Rudy Baez MD 06/01/24 15:18:
[id number]
Original Note:
Today's Communication/Plan
-
Outpatient follow-up with GS in 1-2 weeks to discuss cholecystectomy
start ciprofloxacin 500 mg PO BID and metrondiazole 500 mg also PO BID through 06/08
Infectious Disease will follow up cultures and call if alternative antibiotic needed
hold farxiga while on ciprofloxacin
F/u Surgery, Cards, PCP outpatient
Assessment / Plan
Assessment / Plan
Physical Exam
General: No pallor, cyanosis, or jaundice.
HEENT: Throat clear. PERRLA Normocephalic atraumatic hard of hearing
NECK: Supple. No JVD Carotid Bruits
RESPIRATORY: Bibasilar crackles
CVS: S1, S2 normal. RRR. No murmur, rub or gallop.
ABDOMEN: Soft, tender distended. BS+/normal.
EXTREMITIES: No peripheral cyanosis or edema.
[employer]: AOx3.
74 male A-fib Eliquis history HFrEF recovered EF hypertension hyperlipidemia CKD 3 mitral valve bioprosthetic ventral hernia repair presents with new onset abdomen pain diffuse that woke him up from sleep last night associated with nausea dry heaves
and chills. Abdomen ultrasound consistent with acute cholecystitis. Afebrile mild leukocytosis noted in labs. Patient developed hypoxic insufficiency/failure requiring 2 L following pain medications and a liter bolus given in ED. Chest x-ray
suggestive of heart failure and possible right basilar pneumonia.
#Acute cholecystitis
#Transaminitis
#Sepsis
-abdominal US suggestive acute cholecystitis
--cholecystostomy tube 05/28. Patient high risk for surgical intervention at this time
-Surgery consult appreciated ok for low-fat diet;
-Outpatient follow-up with GS in 1-2 weeks to discuss cholecystectomy
-ID eval appreciated zosyn narrowed to ceftriaxone and flagyl -
- bile cx: unidentified GNR, Pseudomonas and enterococcus
- start ciprofloxacin 500 mg PO BID and metrondiazole 500 mg also PO BID through 06/08
-Infectious Disease will follow up cultures and call if alternative antibiotic needed
- hold farxiga while on ciprofloxacin
#CKD stage 3
-cr appears stable 1.5-1.6
# History HFrEF recovered EF
#Hx Mitral Valve Endocarditis s/p MVR
#Acute hypoxic insufficiency/failure possibly due to acute on chronic HFpEF (resolved)
Echo 05/22/24 noted preserved EF 45 to 50% bioprosthetic mitral valve, improved EF from September 2023 35%
-Restart Farxiga once cipro completed
-Monitor Is&Os and Daily Weights
-BNP elevated but has had similar high values in past if not higher
-chest x ray suggestive heart failure small b/l pleural effusions possible pna (on abx as above)
-weaned off oxygen supplementation after once lasix 20 mg IV 05/27
-Cont lasix upon dc
-Cards f/u
# Iron deficiency anemia
-Ferrous sulfate continued
# BPH
-Finasteride continued
#Paroxysmal Atrial Fibrillation
-resume Eliquis
-Continue metoprolol
-cardiology consult appreciated
# GERD
-PPI continued
#Essential Hypertension
-Continue metoprolol with hold parameter
hydralazine prn
#Anxiety/Depression
-Continue fluoxetine, Ativan continued
# Gout
-Allopurinol continued
# Hyperlipidemia
-Statin continued
#Dizziness/Vertigo when standing
monitor orthostatic vitals
fall precautions
PT/OT eval
DVT proph: Eliquis
Code Status: Full Code
More than 30 minutes spent in discharge including
Final examination of the patient
Summarizing hospital stay
Instructions for continuing care to all relevant caregivers
Preparation of discharge records, prescriptions, and referral forms
Total time spent (35 in minutes):
Anticipated Discharge: Today
Subjective/Interval History
-
Date of Service: June 01, 2024
no acute events
Objective Data
-
Labs:
Laboratory Results
06/01/24
08:07
WBC Pending
Hgb Pending
Hct Pending
Plt Count Pending
Sodium Pending
Potassium Pending
Chloride Pending
Carbon Dioxide Pending
BUN Pending
Creatinine Pending
Glucose Pending
Calcium Pending
Total Bilirubin Pending
AST Pending
ALT Pending
Alkaline Phosphatase Pending
Vital Signs:
Vital Signs
Temp Pulse Resp BP Pulse Ox
98.8 F 74 18 125/67 97
05/31/24 23:24 05/31/24 23:24 05/31/24 23:24 05/31/24 23:24 05/31/24 23:24
I&O
05/31/24 06/01/24 06/02/24
06:59 06:59 06:59
Intake Total 720 / 720 1580 / 1580
Output Total 780 / 780 1350 / 1350
Balance -60 / -60 230 / 230
Review of Systems
-
History Source: Patient
All other systems: Not reviewed unless documented
Physical Exam
-
General: Well Developed, Well Nourished and No Apparent Distress
HEENT: Normocephalic and Atraumatic
Respiratory: Clear to Auscultation; Negative Wheezes or Rhonchi
Cardiac: Irregular Rhythm; Negative Murmur
GI: Soft, Nontender, Nondistended and Normal Bowel Sounds
Musculoskeletal: No Clubbing, No Cyanosis and No Edema
Skin: Warm
Neuro: Awake
Psych: Calm
Data Reviewed
-
Diagnostic Radiology: Image personally visualized and interpreted and Report Reviewed by me
Ultrasound: Report Reviewed by me
Labs: Labs Reviewed by me
[2024-06-01 08:36] LABS: Hematocrit 45.2 % (39.0-52.0); Hemoglobin 13.9 g/dL (13.0-18.0); Mean Corp Hgb Conc. 30.8 g/dL (33.0-37.0); Mean Corpuscular Hgb 27.1 pg (27.0-31.0); Mean Corpuscular Volume 88.1 fL (80.0-94.0); Mean Platelet Volume 9.4 fL (7.4-10.4); Platelet Count 195 10^3/uL (130-400); Red Blood Cell Count 5.13 10^6/uL (4.70-6.10); White Blood Cell Count 11.7 10^3/uL (4.8-10.8)
[2024-06-01 08:45] LABS: ALT (SGPT) 17 U/L (0-50); AST (SGOT) 30 U/L (17-59); Albumin 3.4 g/dl (3.5-5.0); Alkaline Phosphatase 107 U/L (38-126); Blood Urea Nitrogen 30 mg/dl (9-20); Calcium 8.8 mg/dl (8.4-10.2); Carbon Dioxide 28 mmol/L (22-30); Chloride 104 mmol/L (98-107); Estimated Creatinine Clearance 34 ml/min; Glucose 114 mg/dl (70-99); Potassium 3.5 mmol/L (3.5-5.1); Sodium 140 mmol/L (135-145); Total Protein 6.9 g/dl (6.3-8.2); eGFR 41.26
[2024-06-01] MEDS: FARXIGA 10 MG PO (09:07)
[2024-06-01] MEDS: PROZAC 20 MG PO (09:07)
[2024-06-01] MEDS: ELIQUIS 2.5 MG PO (09:07)
[2024-06-01] MEDS: VISBIOME 1 CAP PO (09:07)
[2024-06-01] MEDS: PROTONIX 40 MG PO (09:07)
[2024-06-01] MEDS: MAGNESIUM OXIDE 500 MG PO (09:07)
--- NOTE | 2024-06-01 11:52 | W.PN.ID1 ---
Date of Service
Date of Service: June 01, 2024
Today's Communication
- 05/28/24 s/p perc cholecystostomy - management per surgery
- Blood cx neg to date
- Follow bile cx: unidentified GNR, Pseudomonas and enterococcus
- start ciprofloxacin 500 mg PO BID and metrondiazole 500 mg also PO BID through 06/08
- 500 dose selected due to qtc
- reviewed disulfram reaction with patient
- I will follow up cultures and call if alternative antibiotic needed
- hold farxiga while on ciprofloxacin
- stable for dc from ID perspective
Assessment / Plan
# Recurrent biliary colic/acute cholecystitis
# Leukocytosis improving
- hx Klebsiella cholangitis 09/2023. Pt did not follow-up with Surgeon for elective cholecystectomy
- 05/28/24 s/p perc cholecystostomy - management per surgery
- Blood cx neg to date
- Follow bile cx: unidentified GNR, Pseudomonas and enterococcus
- start ciprofloxacin 500 mg PO BID and metrondiazole 500 mg also PO BID through 06/08
- 500 dose selected due to qtc
- reviewed disulfram reaction with patient
- I will follow up cultures and call if alternative antibiotic needed
- hold farxiga while on ciprofloxacin
- stable for dc from ID perspective
# Conditions present before admission
Chronic HFrEF
Paroxysmal Atrial Fibrillation
Strep mutans MV endocarditis (2005)
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
s/p bio-Mitral Valve Replacement / MAZE procedure / Left Atrial Appendage Ligation (at [facility] 02/25/2022)
Klebsiella bacteremia (09/2023) from acute cholecystitis, passed gallstone
Essential Hypertension
Hyperlipidemia
CKD Stage III
Anxiety/Depression
Gout
BHANU on CPAP
Inguinal Hernia Repair
Paraesophageal Hernia Repair
Ventral Hernia Repair
Inguinal hernia repair
Small bowel obstruction status post exploratory lap.
Chief Complaint
-: Other (cholecystitis)
Subjective / Review of Systems
afebrile
bp stable
minimal leukocytosis today
cr 1.7 today - his baseline
drain output mostly clear with some sediment
Vital Signs / Physical Exam
Vital Signs
Vital Signs
Temp Pulse Resp BP Pulse Ox
98.0 F 82 18 137/66 97
06/01/24 07:00 06/01/24 07:00 06/01/24 07:00 06/01/24 07:00 06/01/24 07:00
Physical Exam
Constitutional: No Acute Distress
Cardiovascular: Regular Rate and S1/S2; Negative Murmur or Rub
Pulmonary: Clear and Symmetric; Negative Wheezes or Rales
Gastrointestinal: Soft, Non Tender, Non Distended and Normal Bowel Sounds
Skin: Warm and Dry; Negative Rash or Jaundice
Lines: Other (drain in place)
Objective Data
Lab Data
Lab Results
06/01/24 08:07
06/01/24 08:07
PT 18.7 Sec (11.4-14.6) H 05/28/24 05:39
INR 1.58 05/28/24 05:39
APTT 43.0 Sec (23.4-35.0) H 05/28/24 05:39
Estimated Creat Clear 34 ml/min 06/01/24 08:07
Lactic Acid 1.1 mmol/L (0.7-2.0) 05/26/24 21:19
Total Bilirubin 1.0 mg/dl (0.2-1.3) 06/01/24 08:07
AST 30 U/L (17-59) 06/01/24 08:07
ALT 17 U/L (0-50) 06/01/24 08:07
Alkaline Phosphatase 107 U/L (38-126) 06/01/24 08:07
Most recent labs reviewed.
Micro Results:
05/28/24 13:50 Body Fluid Culture - Preliminary
Bile Gram negative bacilli
Pseudomonas species
Enterococcus species
Gram Stain - Preliminary
05/26/24 21:19 Blood Culture - Final
Blood/Venous No Growth - Final Report
05/26/24 20:52 Blood Culture - Final
Blood/Venous No Growth - Final Report
05/28/24 13:50 Anaerobic Culture - Preliminary
Bile Culture pending. Anaerobic cultures are examined after 3
days incubation. Additional information to follow.
05/26/24 CXR: Cardiomegaly with mildly increased pulmonary vascularity suggesting suggesting mild CHF. Small bilateral pleural effusions, right greater than left.
Superimposed right basilar opacity such as pneumonia cannot be entirely excluded.
05/26/24 ABD US: Prominent size gallbladder with stones including at least one stone in the vicinity of the gallbladder neck. Gallbladder wall mildly thickened at 0.4 cm. Positive sonographic Durán's sign. No findings to suggest biliary tract
dilatation. OVERALL FINDINGS COULD REPRESENT ACUTE CHOLECYSTITIS.
[2024-06-01] MEDS: KCL 10 MEQ PO (12:25)
[2024-06-01] MEDS: FEOSOL PO (12:25)
--- NOTE | 2024-06-01 12:29 | W.DS.TRANS ---
DC Summary - Supervisor Delivery Department
-
Discharge Instructions:
Discharge Diagnosis/Procedures
#Acute on Chronic cholecystitis
#Transaminitis
#Sepsis
Diet Low Fat,Low Cholesterol,Low Residue
Activity No strenuous activity
Bathing Restrictions OK to Shower
Blood Work cbc, cmp in 5 days with pcp
Specialty Instructions Weigh Daily
Instructions:
Stand-Alone Forms:
Changes to Home Medications: Yes
Discharge Medications:
DC Medications w/original date entered in [employer]
allopurinol 100 mg tablet 200 mg PO QPM Gout 04/19/19
finasteride 5 mg tablet 5 mg PO HS Urinary issue 04/19/19
atorvastatin 40 mg tablet 40 mg PO HS High cholesterol #1 tab 10/12/20
dapagliflozin propanediol 10 mg tablet (Farxiga) 10 mg PO DAILY Diabetes/Cardiovascular health 05/19/22
lorazepam 0.5 mg tablet 0.5 mg PO Q6HPRN PRN anxiety/sleep 05/19/22
magnesium oxide 400 mg PO DAILY Electrolyte Repletion 05/19/22
pantoprazole 40 mg tablet,delayed release 40 mg PO DAILY Gastrointestinal issue 05/19/22
apixaban 2.5 mg tablet (Eliquis) 2.5 mg PO BID #60 tabs 05/24/22
Bifidobacterium infantis 4 mg capsule (Align) 4 mg PO DAILY Gastrointestinal issue 12/30/22
sildenafil 100 mg tablet 100 mg PO DAILYPRN PRN ed 12/30/22
fluoxetine 20 mg capsule 20 mg PO DAILY Depression 10/12/23
potassium chloride 10 mEq tablet,extended release 10 meq PO DAILY@1130 Electrolyte Repletion 10/12/23
ferrous sulfate 325 mg (65 mg iron) tablet 325 mg PO DAILY@1320 Electrolyte Repletion 05/26/24
furosemide 20 mg tablet (Lasix) 20 mg PO DAILY@1500 Fluid Retention/Swelling 05/26/24
metoprolol succinate 50 mg tablet,extended release 24 hr 50 mg PO HS Blood Pressure 05/26/24
Lactobac/Bifidobac [Visbiome] 1 cap PO DAILY 10 days #10 caps 06/01/24
ciprofloxacin HCl 500 mg tablet 500 mg PO BID 8 days #16 tabs 06/01/24
metronidazole 500 mg tablet 500 mg PO BID 8 days #16 tabs 06/01/24
Home Medication Changes
Lactobac/Bifidobac [Visbiome] 1 cap PO DAILY 10 days #10 caps 06/01/24
ciprofloxacin HCl 500 mg tablet 500 mg PO BID 8 days #16 tabs 06/01/24
metronidazole 500 mg tablet 500 mg PO BID 8 days #16 tabs 06/01/24
Pending Results: No
--- NOTE | 2024-06-01 12:47 | CM ---
Patient is for discharge to home today. Patient has been set up with [facility], [facility] liasion contacted.
Plan; Home with [facility].
--- NOTE | 2024-06-01 13:17 | VNURNOTE ---
Home Health Liaison met with patient and spouse Chan at 1300 to discuss [facility] nurse visits, schedule and homebound status. Patient is agreeable and understands that visits at home will be 2-3 x per week to assess and teach medical management and
perc tube care.
[facility] brochure provided with contact information. Patient is aware that [facility] will contact him for start of care in 1-2 days after discharge from .
[facility] referral completed in [facility].
[2024-06-01 15:00] VITALS: BP 137/66
== END 2024-06-01 16:01 | disposition home health service (06) | DRG 871 ==
LOC: 4 WEST ACU 18:24
PROVIDERS: Radiology Vascular & Interventional Radiology; Registered Nurse; ADMITTING PHYSICIAN Internal Medicine; ATTENDING PHYSICIAN Internal Medicine; CONSULT PHYSICIAN Internal Medicine Cardiovascular Disease; CONSULT PHYSICIAN Internal Medicine Infectious Disease; CONSULT PHYSICIAN Surgery; EMERGENCY PHYSICIAN Emergency Medicine; FAMILY PHYSICIAN Family Medicine
PROC: 0F9430Z Drainage of Gallbladder with Drainage Device, Percutaneous Approach (ICD-10-PCS; 2024-05-28)
DX: A41.9 Sepsis, unspecified organism (principal); J18.9 Pneumonia, unspecified organism; K81.2 Acute cholecystitis with chronic cholecystitis; I13.0 Hypertensive heart and chronic kidney disease with heart failure and stage 1 through stage 4 chronic kidney disease, or unspecified chronic kidney disease; I42.9 Cardiomyopathy, unspecified; N18.30 Chronic kidney disease, stage 3 unspecified; I48.0 Paroxysmal atrial fibrillation
CPT/HCPCS: 47490; 71046; 76700; 80053; 81003; 81015; 82248; 83605; 83690; 83735; 83880; 84100; 84484; 85025; 85027; 85610; 85730; 86850; 86900; 86901; 87015; 87040; 87070; 87075; 87077; 87186; 87205; 93005; 96361; 96365; 96375; 97161; 97166; 99152; 99153; 99285; C1729; C1769

== ENCOUNTER 2024-07-16 17:56 | Inpatient (IN) | payer OTHER, SELFPAY ==
[2024-07-16] VITALS (16 sets, daily range): BP systolic 20–157; BP diastolic 47–75; BMI 22.6
[2024-07-16 11:02] LABS: Glucose - Point of Care 94 mg/dl (70-99)
[2024-07-16] MEDS: NORMOSOL-R 1000 IV (11:31)
[2024-07-16] MEDS: TYLENOL 1000 MG PO (12:06)
--- NOTE | 2024-07-16 13:05 | W.SUR.PREOP ---
Pre-Operative Surgical Note
-
I have examined this patient prior to the performance of the scheduled procedure.
The patient's condition is unchanged from the time of the current History and
Physical and the patient is able to undergo the scheduled procedure.
[2024-07-16 15:05] LABS: Glucose - Point of Care 145 mg/dl (70-99)
--- NOTE | 2024-07-16 16:49 | W.IMMPOSTOP ---
Addendum entered and electronically signed by Jesus Underwood MD 07/16/24 17:31:
#[id number]
Original Note:
Surgical Immed Post Op Note
-
Primary Surgeon: Yasmine
Assisting Surgeon: Ely PENA
Pre-op Diagnosis: Chronic calculus Cholecystitis; percutaneous cholecystostomy tube in place
Post-op Diagnosis: Chronic calculus cholecystitis
Percutaneous cholecystostomy tube in place
Choledocholithiasis
Procedure Performed: Laparoscopic cholecystectomy with intraoperative cholangiogram; laparoscopic lysis of adhesions
Anesthesia Type: GETA +0.25% Marcaine
Specimen / Cultures: Gallbladder
Estimated Blood Loss: 72 mL
Complications: None immediate
Operative Findings: Filmy omental adhesions in the right upper quadrant and perihepatic space which were lysed for exposure encompassing about 30 to 45 minutes of operative time. Percutaneous cholecystostomy tube is in place and functioning well.
Removed. Cholecystectomy completed. Large, dilated cystic duct. Extracted 4 to 5 stones from cystic duct lumen. Intraoperative cholangiogram then performed identifying 1-2 additional stones within the common bile duct. 1 stone was more proximal
within the common hepatic/common bile duct. The second stone appeared to be distally at the ampulla. Unable to extract the common bile duct stones stones through cystic duct approach. Cystic duct stump controlled with 0 PDS Endoloop and
hemoclipped proximally and distally to Endoloop. Gallbladder extracted at epigastric 12 mm trocar site.
Drains: 19 Pedro right upper quadrant subhepatic space
Plan: Clear liquid diet for comfort postop
Consult GI service for postoperative ERCP for management of choledocholithiasis identified on IOC
Continue to hold therapeutic anticoagulation given need for postoperative GI procedure
Updated patient's in atrium/waiting area
[2024-07-16 17:01] LABS: Glucose - Point of Care 138 mg/dl (70-99)
[2024-07-16] MEDS: ZOFRAN 4 MG IV (17:13)
[2024-07-16] MEDS: DILAUDID 0.25 MG IV ×4 (17:29→22:55)
[2024-07-16] MEDS: NSS 1000 IV (18:01)
[2024-07-16] MEDS: ZYLOPRIM PO (20:39)
[2024-07-16] MEDS: LOVENOX 40 MG SC (20:40)
[2024-07-16] MEDS: ZOSYN 50 IV (20:41)
[2024-07-16] MEDS: TOPROL XL PO (21:00)
[2024-07-16 22:48] LABS: Glucose - Point of Care 107 mg/dl (70-99)
[2024-07-16] MEDS: PROSCAR 5 MG PO (23:05)
[2024-07-17] VITALS (13 sets, daily range): BP systolic 30–139; BP diastolic 41–69; BMI 23.1
[2024-07-17] MEDS: ZOSYN 50 IV ×4 (01:01→20:13)
[2024-07-17] MEDS: NSS 1000 IV ×2 (01:34→17:00)
--- NOTE | 2024-07-17 06:23 | PTCARENOTE ---
pt has not used the bathroom. RN did a bladder scan.
--- NOTE | 2024-07-17 06:48 | CON.GI ---
Addendum entered and electronically signed by Stanislav Varela MD 07/17/24 14:06:
I saw and examined the patient.
The DIRECTOR SOCIAL or PA's note was reviewed and I agree with the note.
Comment: 74yo male presents fo elective lap chol/removal of jonel tube following admission for sepsis when cholecystostomy tube was placed. He underwent lap jonel yesterday and IOC performed. Contrast did not empty CBD until catheter passed what
appeared to be stone at level of ampulla. Another stone appeared to be floating in mid duct. Pt doing well today, denies any significant pain.
REC:
Plan for ERCP to clear CBD stone post lap jonel
Original Note:
Consultation
-
Date/Time Consultation Requested: 07/16/241744
Date/Time Consultation Performed: 07/17/24 0830
Requesting Provider: Jesus Underwood MD
Performing Provider: GERONIMO Martinez, David Reese MD
Reason for Consultation: choledocholithiasis
Medical History
Chief Complaint / HPI
Chief Complaint: Elevated LFTs and abdominal pain
History of Present Illness:
73-year-old male With history of hypertension, paroxysmal A-fib on Eliquis prior to admission, history of congestive heart failure, s/p MVR/MAZE for severe MR, history of endocarditis in 2005, paraesophageal, inguinal and ventral hernia repair, exp
lap with ELIESER with recent admission in May with acute cholecystis and sepsis with placement of jonel tube. He went 07/16 for lap jonel with removal of jonel tube with noted + cholangiogram for choledocholithiasis and asked to eval for ERCP.
Pt states some increased pain in May but recently improved with occasional mild pain. He admits to chronic bloating due to multiple abdominal surgeries but denies dysphagia, GERD, nausea, vomiting, diarrhea, constipation or rectal bleeding.
EGD:2021 [facility] - Normal esophagus. gastritis, plaque like lesions 10 x 10 mm gastric fundus normal duodenum with neg bx but note + pill residue and + iron stain
Past Medical History
Past Medical History: Arrhythmias (afib- eliquis prior to admission), CHF, HTN, Hypercholesterolemia, Renal Failure (CKD stage 3 ) and Other (BHANU cpap, cholecystitis with jonel tube, anemia, GI bleeding)
Past Surgical History: Cardiac (cardioversion 10/2021, cath at [facility] 2021, MVR bioprosthetic, hx MAZE, left atrial appendage ligation), Cholecystectomy (07/16 lap jonel with ELIESER and IOC + choledocholithiasis) and Other (open paraesophageal hernia
repair, ventral hernia repair, inguinal hernia repair x 2, exp lap with ELIESER, release of SBO, removal of mesh and repair of incisional hernia with mesh)
Social History
Tobacco: Non-Smoker
Alcohol: Occasional
Drug: None
Personal: Partner
Living: With Family
Employment: Retired
Family History
Family History: Reviewed & Not Pertinent
Allergies / Home Medications
Allergy/AdvReac Type Severity Reaction Status Date / Time
red dye Allergy SEE BELOW Verified 07/16/24 18:12
�Medication �Instructions �Recorded
allopurinol 100 mg tablet 200 mg PO QPM Gout 04/19/19
finasteride 5 mg tablet 5 mg PO HS Urinary issue 04/19/19
atorvastatin 40 mg tablet 40 mg PO HS High cholesterol #1 tab 10/12/20
dapagliflozin propanediol 10 mg 10 mg PO DAILY 05/19/22
tablet (Farxiga) Diabetes/Cardiovascular health
lorazepam 0.5 mg tablet 0.5 mg PO Q6HPRN PRN anxiety/sleep 05/19/22
magnesium oxide 400 mg PO DAILY Electrolyte 05/19/22
Repletion
pantoprazole 40 mg tablet,delayed 40 mg PO DAILY Gastrointestinal 05/19/22
release issue
apixaban 2.5 mg tablet (Eliquis) 2.5 mg PO BID #60 tabs 05/24/22
Bifidobacterium infantis 4 mg 4 mg PO DAILY Gastrointestinal 12/30/22
capsule (Align) issue
sildenafil 100 mg tablet 100 mg PO DAILYPRN PRN ed 12/30/22
fluoxetine 20 mg capsule 20 mg PO DAILY Depression 10/12/23
potassium chloride 10 mEq 10 meq PO DAILY@1130 Electrolyte 10/12/23
tablet,extended release Repletion
furosemide 20 mg tablet (Lasix) 40 mg PO PRN PRN edema 05/26/24
metoprolol succinate 50 mg 50 mg PO HS Blood Pressure 05/26/24
tablet,extended release 24 hr
Review of Systems
-
History Source: Patient
Constitutional: Reports No Symptoms
EENT: Reports No Symptoms
Respiratory: Reports No Symptoms
Cardiac: Reports No Symptoms
Abdomen/GI: Reports Abdominal Pain and Other (bloating )
: Reports Difficulty Voiding (postop)
Musculoskeletal: Reports No Symptoms
Skin: Reports No Symptoms
Neurological: Reports Weakness
Endocrine: Reports No Symptoms
Hematologic/Lymphatic: Reports Bleeding
Vital Signs
Temp Pulse Resp BP Pulse Ox
98.0 F 61 16 123/55 99
07/17/24 03:20 07/17/24 03:20 07/17/24 03:20 07/17/24 03:20 07/17/24 03:20
Physical Exam
Exam
General: Well Developed, Well Nourished and No Apparent Distress
HEENT: Normocephalic and Anicteric
Respiratory: Clear
Cardiac: Regular Rhythm
GI: Soft, Tender (minimal with jonel tube out and BRADLEY drain with some serous drainage) and Distended (with some chronic bloating )
Musculoskeletal: No Clubbing and No Cyanosis
Skin: Warm and Dry
Neuro: Awake, Alert and AO x 3
Psych: Calm
Results
Diagnostic Image Results:
Prior GI Procedures:
EGD:2021 [facility] - Normal esophagus.
- Z-line regular, 39 cm from the incisors.
- Linear streaks of gastritis in body of stomach.
Biopsied.
- Plaque like lesion-10 x 10 mm in the gastric fundus.
Biopsied.
- Normal examined duodenum. Biopsied.
bx neg H pylori, neg metaplasia, stain + iron , pill residue
Colonoscopy: 2021 [facility] - Minimal diverticulosis in the sigmoid colon.
- A veneer of red blood was found in the entire colon.
- The examined portion of the ileum was normal. There
was no blood identified in the terminal ileum
- No active bleeding seen at a self-limited bleed from
the diverticula.
Assessment / Plan
-
73-year-old male With history of hypertension, paroxysmal A-fib on Eliquis prior to admission, history of congestive heart failure, CKD, s/p MVR/MAZE for severe MR 02/14 history of endocarditis in 2005, paraesophageal, inguinal and ventral hernia
repair, exp lap with ELIESER with recent admission in May with acute cholecystis and sepsis with placement of jonel tube. He went 07/16 for lap jonel with noted + cholangiogram for choledocholithiasis and asked to eval for ERCP.
-choledocholithiasis noted on IOC
-07/16 lap jonel
-recent cholecystitis with jonel tube placed in May 2024
-leukocytosis
mild thrombocytopenia
other med problems:
-afib- eliquis prior to admission
-CHF
-CKD
-MVR/MAZE
-multiple abdominal surgeries
-GI bleed with EGD/colon 2021
PLAN:
noted with + IOC for choledocholithiasis
LFT's stable with minimal elevated bili
plan for ERCP today reviewed risk/benefits with patient agreeable to proceed
NPO
IVF
cont abx
cont Eliquis hold
-
-
Thank you for consultation and allowing me to participate in the patient's care. Please call the interrelated special education teacher GI physician during the after hours with any questions or concerns.
--- NOTE | 2024-07-17 06:54 | W.PN.GS2 ---
Today's Communication / Plan
-
`
Assessment / Plan
-
Assessment: 74 y/o male POD#1 s/p lap jonel with IOC for h/o ACC/CCC with perc jonel tube in place
IOC + for choledocholithiasis
AFVSS
doing well post op
BRADLEY nonbilious and light SSF
h/o Afib, bioprosthetic MV/maze, h/o cardiomyopathy, h/o DM, CRI, BPH, BHANU
Plan: multimodal pain control options
GI consult op for anticipated ERCP d/t choledocholithiasis seen on cholangiogram - assistance with post op care appreciated
dietary advancement pending GI eval and timing
zosyn for empiric coverage of biliary tree given CBD stones and yesterdays procedure with abd wall mesh in place
continue BRADLEY - if remains SSF will be removed prior to d/c home
post op urinary retention requiring straight cath x 1 - if continued retention place burkett
lovenox for VTEp - plan would be to resume eliquis 48-72hr post op
home meds
Subjective Data
-
Date of Service: July 17, 2024
pt seen and examined
post op pain reported but adequately controlled
no nausea
asking about eating
a bit distended
Objective Data
-
Intake and Output
07/15/24 07/16/24 07/17/24
06:59 06:59 06:59
Intake Total 3915 / 3915
Output Total 515 / 515
Balance 3400 / 3400
Intake:
Oral fluids 1215 / 1215
IV fluids (Total) 1400 / 1400
Norm 100 / 100
Nss 1,000 ml @ 100 mls/hr IV . 100 / 100
Q10H RITESH Rx#:[id number]
IV piggybacks 1300 / 1300
Output:
Drain Output (Total)
Right Abdomen Dionicio-Martinez
Straight cath output 450 / 450
Vital Signs
Temp Pulse Resp BP Pulse Ox
98.0 F 61 16 123/55 99
07/17/24 03:20 07/17/24 03:20 07/17/24 03:20 07/17/24 03:20 07/17/24 03:20
Physical Exam
-
NAD AAOx3
ABD: softly distended and some tympany, minimal tenderness at incision sites
incisions with glue dressings
BRADLEY with light SSF, non bilious
[2024-07-17 07:36] LABS: Glucose - Point of Care 106 mg/dl (70-99)
[2024-07-17 08:29] LABS: Hematocrit 37.1 % (39.0-52.0); Hemoglobin 11.9 g/dL (13.0-18.0); Mean Corp Hgb Conc. 32.1 g/dL (33.0-37.0); Mean Corpuscular Volume 90.3 fL (80.0-94.0); Platelet Count 124 10^3/uL (130-400); Red Blood Cell Count 4.11 10^6/uL (4.70-6.10); Red Cell Dist. Width 17.3 % (11.5-14.5); White Blood Cell Count 12.1 10^3/uL (4.8-10.8)
[2024-07-17 08:41] LABS: ALT (SGPT) 33 U/L (0-50); AST (SGOT) 55 U/L (17-59); Albumin 3.2 g/dl (3.5-5.0); Alkaline Phosphatase 98 U/L (38-126); Blood Urea Nitrogen 24 mg/dl (9-20); Calcium 8.1 mg/dl (8.4-10.2); Carbon Dioxide 26 mmol/L (22-30); Chloride 104 mmol/L (98-107); Estimated Creatinine Clearance 38 ml/min; Glucose 95 mg/dl (70-99); Potassium 4.2 mmol/L (3.5-5.1); Sodium 138 mmol/L (135-145); Total Bilirubin 1.5 mg/dl (0.2-1.3); Total Protein 6.5 g/dl (6.3-8.2); eGFR 44.38
[2024-07-17] MEDS: MAG-TAB SR 84 MG PO (09:06)
[2024-07-17] MEDS: PROTONIX 40 MG PO (09:06)
[2024-07-17] MEDS: PROZAC 20 MG PO (09:06)
[2024-07-17 12:18] LABS: Glucose - Point of Care 83 mg/dl (70-99)
--- NOTE | 2024-07-17 14:28 | CM ---
Reviewed the chart notes and spoke with the patient at the bedside. The patient resides with his in a two story home with two steps to enter. The patient has a rolling walker, cane, and a tub bench. The patient has had [facility] in
the past and been to [facility]. The patient confirmed his pharmacy of choice is the [facility]. continues to be available to patient/family and is monitoring medical plan for needs at discharge.
Plan: Discharge to home when medically stable. No needs anticipated at this time.
--- NOTE | 2024-07-17 17:06 | PTCARENOTE ---
Patient returned from [facility] post ERCP.They were able to remove the one stone that was left.Vital signs are stable.The patient reports his pain at a 4 out of 10.The patient is in his bed with the call ivey in reach.
[2024-07-17] MEDS: ZYLOPRIM 200 MG PO (17:11)
[2024-07-17] MEDS: LOVENOX 40 MG SC (17:14)
[2024-07-17 17:40] LABS: Glucose - Point of Care 108 mg/dl (70-99)
[2024-07-17 22:02] LABS: Glucose - Point of Care 193 mg/dl (70-99)
[2024-07-17] MEDS: PROSCAR 5 MG PO (22:24)
[2024-07-17] MEDS: TOPROL XL 50 MG PO (22:24)
[2024-07-17] MEDS: LIPITOR 40 MG PO (22:27)
[2024-07-17] MEDS: MYLICON 80 MG PO (23:55)
[2024-07-17] MEDS: ATIVAN 0.5 MG PO (23:59)
[2024-07-18] MEDS: ZOSYN 50 IV ×2 (01:04→08:20)
--- NOTE | 2024-07-18 03:01 | DOWNTIME ---
There was a [place] Client Official [employer] Reporter Downtime on 07/18/2024 from 0100 to 07/18/2024 at 0252. Downtime documentation of patient's care, including medication administrations, has been reconciled in the electronic record per guidelines. Refer to the
patient's paper chart under the miscellaneous tab to see printed paper medication records and downtime forms.
[2024-07-18 03:16] VITALS: BP 134/55
[2024-07-18 06:00] VITALS: BMI 23.5
[2024-07-18] MEDS: NSS 1000 IV (06:35)
--- NOTE | 2024-07-18 06:49 | W.PN.GS2 ---
Today's Communication / Plan
-
`
Assessment / Plan
-
Assessment: 74 y/o male POD#2 s/p lap jonel with IOC for h/o ACC/CCC with perc jonel tube in place
IOC + for choledocholithiasis
PPD#1 s/p ERCP sphincterotomy and removal CBD stone/sludge - GI assistance with care appreciated
postop urinary retention - resolved
AFVSS
doing well post op
BRADLEY nonbilious and light SSF
h/o Afib, bioprosthetic MV/maze, h/o cardiomyopathy, h/o DM, CRI, BPH, BHANU
Plan: advance to low fat/diabetic diet as tolerated
continue BRADLEY - if remains SSF will be removed prior to d/c home
zosyn for empiric coverage of biliary tree given CBD stones and procedure with abd wall mesh in place but no need for abx on dc
lovenox for VTEp - plan would be to resume eliquis 07/19 in AM
home meds
probable d/c home in PM if allie dietary advancement; will return to check/remove BRADLEY in afternoon
Subjective Data
-
Date of Service: July 18, 2024
pt seen and examined.
post op pain improving and controlled
no new abdominal pains
no nausea
allie clears and requesting food
some bloating/gas; + flatus no BM
Objective Data
-
Intake and Output
07/16/24 07/17/24 07/18/24
06:59 06:59 06:59
Intake Total 3915 / 3915 2360 / 2360
Output Total 515 / 515 310 / 310
Balance 3400 / 3400 2049 / 2049
Intake:
Oral fluids 1215 / 1215 1500 / 1500
IV fluids (Total) 1400 / 1400 760 / 760
Norm 100 / 100
Nss 1,000 ml @ 80 mls/hr IV . 100 / 100
[id number] RITESH Rx#:[id number]
IV piggybacks 1300 / 1300 100 / 100
Output:
Drain Output (Total) 60 / 60
Right Abdomen Dionicio-Martinez 60 / 60
Urine, Voided 250 / 250
Straight cath output 450 / 450
Vital Signs
Temp Pulse Resp BP Pulse Ox
98.0 F 65 18 134/55 99
07/18/24 03:16 07/18/24 03:16 07/18/24 03:16 07/18/24 03:16 07/18/24 03:16
Calcium 8.1 mg/dl (8.4-10.2) L 07/17/24 07:09
Total Bilirubin 1.5 mg/dl (0.2-1.3) H 07/17/24 07:09
AST 55 U/L (17-59) 07/17/24 07:09
ALT 33 U/L (0-50) 07/17/24 07:09
Alkaline Phosphatase 98 U/L (38-126) 07/17/24 07:09
Total Protein 6.5 g/dl (6.3-8.2) 07/17/24 07:09
Albumin 3.2 g/dl (3.5-5.0) L 07/17/24 07:09
Physical Exam
-
NAD AAOx3
ABD: softly distended with some tympany, minimal incisional tenderness
incisions with glue dressings
BRADLEY with SSF - stripped to clean tubing
[2024-07-18 07:00] VITALS: BP 132/60
[2024-07-18 07:52] LABS: Glucose - Point of Care 157 mg/dl (70-99)
[2024-07-18] MEDS: PROTONIX 40 MG PO (08:21)
[2024-07-18] MEDS: PROZAC 20 MG PO (08:21)
[2024-07-18] MEDS: MAG-TAB SR 84 MG PO (08:21)
[2024-07-18] MEDS: FARXIGA 10 MG PO (08:21)
[2024-07-18 08:42] LABS: Hematocrit 35.7 % (39.0-52.0); Hemoglobin 11.4 g/dL (13.0-18.0); Mean Corp Hgb Conc. 31.9 g/dL (33.0-37.0); Mean Corpuscular Hgb 28.6 pg (27.0-31.0); Mean Corpuscular Volume 89.5 fL (80.0-94.0); Mean Platelet Volume 10.5 fL (7.4-10.4); Platelet Count 119 10^3/uL (130-400); Red Blood Cell Count 3.99 10^6/uL (4.70-6.10); Red Cell Dist. Width 17.1 % (11.5-14.5); White Blood Cell Count 10.4 10^3/uL (4.8-10.8)
[2024-07-18 09:05] LABS: ALT (SGPT) 27 U/L (0-50); AST (SGOT) 43 U/L (17-59); Albumin 3.2 g/dl (3.5-5.0); Alkaline Phosphatase 83 U/L (38-126); Blood Urea Nitrogen 24 mg/dl (9-20); Calcium 8.3 mg/dl (8.4-10.2); Carbon Dioxide 23 mmol/L (22-30); Chloride 106 mmol/L (98-107); Estimated Creatinine Clearance 41 ml/min; Glucose 151 mg/dl (70-99); Sodium 138 mmol/L (135-145); Total Bilirubin 1.3 mg/dl (0.2-1.3); Total Protein 6.3 g/dl (6.3-8.2); eGFR 47.95
--- NOTE | 2024-07-18 10:05 | W.PN.GI.CBS2 ---
Today's Communication / Plan
-
No complaints s/p ERCP yesterday for removal of CBD stone
LFTs normal
For d/c today
Will sign off
Assessment / Plan
-
73-year-old male With history of hypertension, paroxysmal A-fib on Eliquis prior to admission, history of congestive heart failure, CKD, s/p MVR/MAZE for severe MR 320 history of endocarditis in 2005, paraesophageal, inguinal and ventral hernia
repair, exp lap with ELIESER with recent admission in May with acute cholecystis and sepsis with placement of jonel tube. He went 07/16 for lap jonel with noted + cholangiogram for choledocholithiasis and asked to eval for ERCP.
-choledocholithiasis noted on IOC
-07/16 lap jonel
-recent cholecystitis with jonel tube placed in May 2024
-leukocytosis
mild thrombocytopenia
other med problems:
-afib- eliquis prior to admission
-CHF
-CKD
-MVR/MAZE
-multiple abdominal surgeries
-GI bleed with EGD/colon 2021
Subjective
Subjective
Date of Service: July 18, 2024
No complaints. Denies abd pain. Tolerating breakfast
Objective
Data Reviewed
Laboratory Data:
Laboratory Results
07/18/24 06:59
07/18/24 06:59
Laboratory Results
Total Bilirubin 1.3 mg/dl (0.2-1.3) 07/18/24 06:59
AST 43 U/L (17-59) 07/18/24 06:59
ALT 27 U/L (0-50) 07/18/24 06:59
Alkaline Phosphatase 83 U/L (38-126) 07/18/24 06:59
Vital Signs and I&O:
Vital Signs
Temp Pulse Resp BP Pulse Ox
98.0 F 68 16 132/60 94
07/18/24 07:00 07/18/24 07:00 07/18/24 07:00 07/18/24 07:00 07/18/24 08:00
I&O
07/17/24 07/18/24 07/19/24
06:59 06:59 06:59
Intake Total 3915 / 3915 3940 / 3940
Output Total 515 / 515 900 / 900
Balance 3400 / 3400 3040 / 3040
Physical Exam
Physical Exam
GI: Soft and Non Tender
[2024-07-18 11:00] VITALS: BP 136/53
--- NOTE | 2024-07-18 11:19 | CM ---
Reviewed the chart notes and spoke with the patient at the bedside. IMM reviewed and placed in chart. The patient anticipates being discharged to home today with no additional needs being identified a this time. The patient's spouse will provide
transportation home. CM continues to be available to patient/family and is monitoring medical plan for needs at discharge.
Plan: Discharge to home today.
--- NOTE | 2024-07-18 12:56 | W.PN.SURGUPD ---
Surgical Update
Surgical Update
Patient continues to do well with his postoperative recovery
Ate regular breakfast and some snacks. No worsening abdominal pains. No nausea. Continues to pass flatus regularly.
BRADLEY remains slight serosanguineous, nonbilious.
BRADLEY removed, gauze dressing applied.
DC home
Instructions reviewed
--- NOTE | 2024-07-18 13:01 | W.DS.TRANS ---
DC Summary - Utility Bill Collector
-
Discharge Instructions:
Discharge Diagnosis/Procedures Chronic calculus cholecystitis. Laparoscopic
cholecystectomy. Common bile duct stone - ERCP
Diet As tolerated,Low Fat
Activity No strenuous activity
Driving Restrictions No driving for 1 week
Bathing Restrictions OK to Shower
Wound Care Glue at surgical sites typically peels off in 2
to 3 weeks. Change gauze dressing at old drain
site daily and as needed for drainage. Once
incision is clean and dry no further daily
dressings are required.
Instructions:
Stand-Alone Forms:
Changes to Home Medications: No
Discharge Medications:
DC Medications w/original date entered in [facility]
allopurinol 100 mg tablet 200 mg PO QPM Gout 04/19/19
finasteride 5 mg tablet 5 mg PO HS Urinary issue 04/19/19
atorvastatin 40 mg tablet 40 mg PO HS High cholesterol #1 tab 10/12/20
dapagliflozin propanediol 10 mg tablet (Farxiga) 10 mg PO DAILY Diabetes/Cardiovascular health 05/19/22
lorazepam 0.5 mg tablet 0.5 mg PO Q6HPRN PRN anxiety/sleep 05/19/22
magnesium oxide 400 mg PO DAILY Electrolyte Repletion 05/19/22
pantoprazole 40 mg tablet,delayed release 40 mg PO DAILY Gastrointestinal issue 05/19/22
Bifidobacterium infantis 4 mg capsule (Align) 4 mg PO DAILY Gastrointestinal issue 12/30/22
sildenafil 100 mg tablet 100 mg PO DAILYPRN PRN ed 12/30/22
fluoxetine 20 mg capsule 20 mg PO DAILY Depression 10/12/23
potassium chloride 10 mEq tablet,extended release 10 meq PO DAILY@1130 Electrolyte Repletion 10/12/23
furosemide 20 mg tablet (Lasix) 40 mg PO PRN PRN edema 05/26/24
metoprolol succinate 50 mg tablet,extended release 24 hr 50 mg PO HS Blood Pressure 05/26/24
apixaban 2.5 mg tablet (Eliquis) 2.5 mg PO BID Blood Clot Prevention/Tx 07/17/24
acetaminophen 325 mg tablet 650 mg (2 x 325 mg) PO Q4HPRN PRN mild pain #1 tab 07/18/24
oxycodone 5 mg tablet 5 mg PO Q4HPRN PRN breakthrough/severe pain #10 tabs 07/18/24
Home Medication Changes
Pending Results: No
--- NOTE | 2024-07-18 13:01 | W.DCSUMMARY ---
Discharge Summary
Discharge Data
Date of Admission: 07/16/24
Date of Discharge: 07/18/24
-
Pending Results: No
Hospital Course
Patient is a 74-year-old male who open previously managed with percutaneous cholecystostomy tube for acute calculus cholecystitis. He presented for scheduled cholecystectomy and underwent lap jonel with intraoperative cholangiogram on the date of
admission 07/16/2024. Please see operative report for details regarding operative findings. Cholecystectomy was performed uneventfully. Intraoperative cholangiogram identified choledocholithiasis. gastroenterology service was consulted
postoperatively and on postoperative day 1 he underwent upper endoscopic ultrasound and ERCP, sphincterotomy and stone extraction for choledocholithiasis. Tolerated this procedure well and was discharged home on POD# 2; 07/18/24.
Patient was discharged home on his preoperative medications at the same dosages and schedule. No additional changes made. Outpatient surgical follow-up had been scheduled for 2-week postop visit with myself.
Discharge Plan
-
Patient Disposition: Home (Routine Discharge)
Discharge Diagnosis/Procedures: Chronic calculus cholecystitis. Laparoscopic cholecystectomy. Common bile duct stone - ERCP
Condition: Good
Diet: As tolerated and Low Fat
Activity: No strenuous activity
Driving Restrictions: No driving for 1 week
Bathing Restrictions: OK to Shower
Wound Care: Glue at surgical sites typically peels off in 2 to 3 weeks. Change gauze dressing at old drain site daily and as needed for drainage. Once incision is clean and dry no further daily dressings are required.
Activity Restrictions/Additional Instructions:
�Jesus Underwood MD [facility] - General Surgery
[facility]
[address], [address]
[place] [address]
[phone]
Post-Operative Instructions for Gallbladder Surgery
The incision sites are sealed with a surgical glue dressing.� It is safe to shower at any time after surgery when the glue is dry.� Let shower water run over the incisions and then pat dry.
Glue dressing typically peels off in 2-3 weeks.
Abdominal/incisional pain and discomfort, shoulder/scapular pain, bloating, and mild nausea, as well as bruising/stiffness and swelling at the incision sites are common after surgery.� If felt to be excessive, notify us.
Please start postoperative pain management using over the counter medications such as Tylenol and Ibuprofen, per instructions on the bottle, as long as there are no medical reasons why you cannot take these medications.
Ice the incisions sites for 20 minutes every hour or so to help with postoperative incisional pain and reduce postoperative surgical site swelling.� Take care NOT to get an ice burn on the skin surface.
A warm heating pad is often helpful to alleviate shoulder/scapular back pains after laparoscopic procedures.� This pain typically dissipates 24-72hrs post op.
Transition to a low fat diet as tolerated after surgery if not experiencing postoperative nausea or significant bloating/distention.� Some fatty food intolerance may occur shortly after surgery (cramps,bloating, nausea,diarrhea with fat intake).
Constipation is common following surgery and postoperative narcotic use.� May use a stool softener such as Colace (100 mg 2x day) to prevent constipation
If no BM 24hrs after surgery, recommend starting daily Miralax
If no BM in 24-48hrs after starting Miralax --> recommend then using a dose of magnesium citrate or milk of magnesia with a Senokot tablet to help alleviate post operative constipation as long as there is no nausea/vomiting and passing gas.
Resume all preoperative medications as prescribed, unless directed otherwise.
Do not drive or drink alcohol for 24 hrs after having anesthesia or while taking narcotic pain medications.
Resume regular daily light activities, such as walking, standing and going up/down stairs as tolerated within 24hrs of surgery.� Please refrain from lifting over 20 lbs or strenuous exercise until postoperative follow up visit &/or approximately
3-4 weeks.�
Call the office with a fever above 101� F, nausea with vomiting, severe abdominal pain, yellowing of skin or eyes, spreading redness and drainage from incision sites or with any concerns/questions.
If not arranged prior to surgery, please call the office to schedule or confirm your 10-14 day postoperative surgical follow-up office visit with Dr. Underwood.
Referrals:
Jesus Underwood MD [Active] - in two to three weeks
Prescriptions:
New
oxycodone 5 mg tablet
5 mg PO Q4HPRN PRN (Reason: breakthrough/severe pain) Qty: 10 0RF
acetaminophen 325 mg tablet
650 mg PO Q4HPRN PRN (Reason: mild pain) Qty: 1 0RF
Continued
allopurinol 100 MG tablet
200 mg PO QPM
finasteride 5 MG tablet
5 mg PO HS
atorvastatin 40 MG tablet
40 mg PO HS Qty: 1 0RF
pantoprazole 40 MG tablet,delayed release (DR/EC)
40 mg PO DAILY
dapagliflozin propanediol [Farxiga] 10 MG tablet
10 mg PO DAILY
magnesium oxide 400 MG tablet
400 mg PO DAILY
lorazepam 0.5 MG tablet
0.5 mg PO Q6HPRN PRN (Reason: anxiety/sleep)
Patient Comments:
05/26/2024: last filled 01/03/23, 60 tabs for 30 days from [facility]
sildenafil 100 mg tablet
100 mg PO DAILYPRN PRN (Reason: ed)
Align 4 mg Capsule
4 mg PO DAILY
potassium chloride 10 mEq tablet extended release
10 meq PO DAILY@1130
fluoxetine 20 mg capsule
20 mg PO DAILY
metoprolol succinate 50 MG tablet extended release 24 hr
50 mg PO HS
furosemide [Lasix] 20 mg tablet
40 mg PO PRN PRN (Reason: edema)
Held
Eliquis 2.5 MG tablet
2.5 mg PO BID
Hold Instructions: Resume on 07/19/24. Resume AM 07/19
Discharge Orders:
Discharge Patient (As Directed); Ordered 07/18/24
Ordered By: Jesus Underwood
Discharge Date and Time
Print Language: MALAWIAN
[2024-07-18 14:00] VITALS: BP 132/55
--- NOTE | 2024-07-18 14:16 | PTCARENOTE ---
Discharge instructions given. Questions answered. VSS. Pt to leave w/ significant other. BRADLEY removed by Dr Underwood, dressing c/d/i.
== END 2024-07-18 14:53 | disposition home or self-care (01) | DRG 418 ==
LOC: 2 SOUTH 17:56
PROVIDERS: Internal Medicine Gastroenterology; ADMITTING PHYSICIAN Surgery; CONSULT PHYSICIAN Internal Medicine Gastroenterology
PROC: 0DNU4ZZ Release Omentum, Percutaneous Endoscopic Approach (ICD-10-PCS; 2024-07-16)
PROC: BF502Z0 Other Imaging of Bile Ducts using Fluorescing Agent, Intraoperative (ICD-10-PCS; 2024-07-16)
PROC: 0FT44ZZ Resection of Gallbladder, Percutaneous Endoscopic Approach (ICD-10-PCS; 2024-07-16)
PROC: 0FC98ZZ Extirpation of Matter from Common Bile Duct, Via Natural or Artificial Opening Endoscopic (ICD-10-PCS; 2024-07-17)
PROC: 0DJ08ZZ Inspection of Upper Intestinal Tract, Via Natural or Artificial Opening Endoscopic (ICD-10-PCS; 2024-07-17)
PROC: 0F798ZZ Dilation of Common Bile Duct, Via Natural or Artificial Opening Endoscopic (ICD-10-PCS; 2024-07-17)
DX: K80.66 Calculus of gallbladder and bile duct with acute and chronic cholecystitis without obstruction (principal); I13.0 Hypertensive heart and chronic kidney disease with heart failure and stage 1 through stage 4 chronic kidney disease, or unspecified chronic kidney disease; I42.9 Cardiomyopathy, unspecified; I48.0 Paroxysmal atrial fibrillation; K66.0 Peritoneal adhesions (postprocedural) (postinfection); I34.0 Nonrheumatic mitral (valve) insufficiency; D69.6 Thrombocytopenia, unspecified; N18.30 Chronic kidney disease, stage 3 unspecified; I50.9 Heart failure, unspecified; G47.33 Obstructive sleep apnea (adult) (pediatric)
CPT/HCPCS: 88304; 74300; 74330; 76000; 80053; 82962; 85027; A4300; C1769

== ENCOUNTER → 2025-04-11 10:17 | Outpatient (REF) | payer OTHER, SELFPAY | LOC: RCS 10:17 | PROVIDERS: ATTENDING PHYSICIAN Nuclear Medicine Nuclear Cardiology; FAMILY PHYSICIAN Family Medicine | DX: Z95.3 Presence of xenogenic heart valve (principal) | CPT/HCPCS: 93306 ==

== ENCOUNTER 2025-09-03 07:03 | Day surgery (SDC) | payer OTHER, SELFPAY ==
--- NOTE | 2025-09-03 08:12 | ITS.CL.CARDI ---
[facility] [employer] - Cardioversion
Cardioversion
Procedure Report:
Procedure: Direct current electrical cardioversion
Pre-operative diagnosis: Persistent atrial tachycardia
Post-operative diagnosis: Persistent atrial tachycardia status post DC cardioversion to sinus rhythm
Anesthesia: MAC
Attending Physician: Angel Vernon MD
Procedure Description: The patient was brought to the electrophysiology laboratory in the fasting state. Adherence to anticoagulation regimen was confirmed. Informed consent was obtained from the patient prior to the start of the procedure.
Electrodes were placed on the patient and connected to an external defibrillator. Monitoring of blood pressure, ECG tracings, and pulse oximetry was initiated. The pads were applied to the patient in the anterior and posterior positions. The patient
was sedated by the anesthesiologist. A 200 joule biphasic synchronized shock was delivered to the patient under MAC anesthesia. Sinus rhythm was successfully restored. The patient recovered uneventfully from MAC anesthesia. There were no immediate
post-procedure complications. The patient left the lab in good condition. The attending physician was present throughout the entire procedure.
Impression: Successful direct current cardioversion with evangelical of sinus rhythm after one 200 joule biphasic synchronized shock.
== END 2025-09-03 08:00 | disposition home or self-care (01) ==
LOC: CATH 07:03
PROVIDERS: ATTENDING PHYSICIAN Internal Medicine Cardiovascular Disease; FAMILY PHYSICIAN Family Medicine; OTHER PHYSICIAN Nuclear Medicine Nuclear Cardiology
DX: I47.19 Other supraventricular tachycardia (principal); I48.0 Paroxysmal atrial fibrillation
CPT/HCPCS: 92960; 93005